=== PATIENT | female | born 1935 | race Caucasian/White ===

== ENCOUNTER 2017-03-25 19:36 | Outpatient (CLI) | payer MEDICARE, OTHER | END 2017-03-25 19:37 | disposition critical access hospital (66) | DX: R11.2 Nausea with vomiting, unspecified (principal) | CPT/HCPCS: A0425; A0427 ==

== ENCOUNTER 2017-03-25 19:57 | Inpatient (IN) | payer MEDICARE, OTHER ==
[2017-03-25] MEDS ORDERED: ONDANSETRON 4 MG/2 ML VIAL IVP STA (20:41)
[2017-03-25] MEDS ORDERED: SODIUM CHLORIDE 0.9% 1,000 ML IV ONE (20:41)
--- NOTE | 2017-03-25 20:44 | ED Physician Documentation ---
History of Present Illness - Stated complaint Stated Complaint: VERTIGO,NAUSEA - Chief complaint Chief Complaint: Neuro - History obtained from History obtained from: Patient - History of Present Illness Timing: Enter time (1800), Today - Additonal information Additional information: 81 y/o female with a history of thrombocytosis and TIA's has developed acute vertigo and vomiting this evening. She was a the eye doctor earlier today and had her eyes dilated. (she has been doing this for macular degeneration for 5 months without reactions). She has a history of vertigo and this is usually improved with dramamine and benadryl. 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 Review of Systems Constitutional: denies: Fever, Chills, Myalgias, Fatigue Eyes: reports: Decreased vision Ears: denies: Ear pain Nose: denies: Rhinorrhea / runny nose, Congestion Throat: denies: Sore throat Cardiac: denies: Chest pain / pressure, Palpitations Respiratory: denies: Dyspnea, Cough GI: reports: Nausea, Vomiting. denies: Abdominal Pain : denies: Dysuria, Frequency Skin: denies: Rash Musculoskeletal: denies: Neck pain, Back pain, Extremity pain Neurologic: denies: Generalized weakness, Focal weakness, Numbness, Difficulty speaking, Confused, Altered mental status, Headache, Head injury, LOC PD PAST MEDICAL HISTORY - Past Medical History Cardiovascular: Hypertension Respiratory: None Neuro: None Endocrine/Autoimmune: HyPOthyroidism GI: GERD : Kidney stones HEENT: Other Psych: Claustrophobia Musculoskeletal: Osteoarthritis Derm: None - Past Surgical History Past Surgical History: Yes General: Cholecystectomy, Appendectomy, 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 08/27/14 03/25/17 metFORMIN [Glucophage] 500 mg ORAL DAILY 10/16/16 03/25/17 Aspirin Chewable [St Dilan 81 mg PO DAILYWM tablet 10/17/16 03/25/17 Aspirin] Hydroxyurea [Hydrea] 500 mg PO DAILY 02/18/17 03/25/17 Simvastatin 20 mg PO DAILY 03/25/17 03/25/17 - Allergies Allergies/Adverse Reactions: Allergies Allergy/AdvReac Type Severity Reaction Status Date / Time No Known Drug Allergies Allergy Verified 03/25/17 20:07 - Social History Does the pt smoke?: No Smoking Status: Never smoker Does the pt drink ETOH?: No Does the pt have substance abuse?: No - Immunizations Immunizations are current?: Yes - POLST Patient has POLST: No PD ED PE NORMAL - Vitals Vital signs reviewed: Yes (hypertensive with wide pulse pressure. ) - General General: Well developed/nourished - HEENT HEENT: Atraumatic, EOMI, Ears normal, Other (dry mucous membranes the left pupil is larger than the right. There is horizontal nystagmus at rest. ) - Neck Neck: Supple, no meningeal sign, No bony TTP, No bruit - Cardiac Cardiac: RRR, No murmur - Respiratory Respiratory: No respiratory distress, Clear bilaterally - Abdomen Abdomen: Soft, Non tender - Derm Derm: Normal color, Warm and dry, No rash - Extremities Extremities: No deformity, No edema - Neuro Neuro: No motor deficit, No sensory deficit - Psych Psych: Other (concentrating hard not to vomit. ) Results - Vitals Vitals: Vital Signs - 24 hr 03/25/17 03/25/17 03/25/17 20:02 22:33 23:00 Temperature 36.2 C L Heart Rate 70 89 86 Respiratory 14 23 15 Rate Blood Pressure 157/63 H 155/85 H 132/82 H O2 Saturation 100 98 97 Oxygen O2 Source Room air - Labs Labs: Laboratory Tests 03/25/17 03/25/17 03/25/17 21:10 21:10 21:10 WBC 12.3 H RBC 4.22 Hgb 12.4 Hct 38.0 MCV 90.2 MCH 29.4 MCHC 32.6 RDW 17.7 H Plt Count 424 MPV 7.1 L Neut # 10.5 H Lymph # 1.0 L Bulloch # 0.7 Eos # 0.1 Baso # 0.0 Absolute Nucleated RBC 0.01 Nucleated RBCs 0.1 Sodium 138 Potassium 3.9 Chloride 101 Carbon Dioxide 27 Anion Gap 10.0 BUN 22 H Creatinine 0.8 Estimated GFR (MDRD) 69 L Glucose 193 H Calcium 9.2 Total Bilirubin 0.3 AST 20 ALT 18 Alkaline Phosphatase 59 Troponin I < 0.04 Total Protein 7.4 Albumin 4.5 Globulin 2.9 Albumin/Globulin Ratio 1.6 Lipase 32 Procedures - IVC sono (time) 2036 Bedside IVC sono: IVC measures (cm) (0.87), IVC collapsed c insp (cm) (complete) , Dehydration PD MEDICAL DECISION MAKING - ED course Complexity details: reviewed old records, reviewed results, re-evaluated patient , considered differential, d/w patient, d/w family ED course: 81 y/o female with thrombocytosis has acute vertigo with vomiting. There is concern for lateral medullary infarction with the thrombocytosis. Today her platelets are normal. She continues to have nausea, vomiting and vertigo despite the use of zofran. She is given phenergan and meclazine and continues be extremely vertiginous and nauseated. She is unable to sit up without vomiting. Her vomiting is intractable and admission is sought. Dr. Soares graciously agrees to care for the patient in the hospital. Departure - Departure Disposition: 66 [facility] DC/Xfer Clinical Impression: Vertigo Intractable vomiting with nausea Qualifiers: Vomiting type: unspecified Qualified Code(s): R11.2 - Nausea with vomiting, unspecified Condition: Stable
[2017-03-25] MEDS ORDERED: ONDANSETRON 4 MG/2 ML VIAL ONE (20:52)
[2017-03-25 21:22] LABS: BASOPHILS % (AUTO) 0.4 %; EOSINOPHILS # (AUTO) 0.1 10^3/uL (0.0-0.7); EOSINOPHILS % (AUTO) 0.5 %; HGB - HEMOGLOBIN 12.4 g/dL (12.0-16.0); LYMPHOCYTES % (AUTO) 8.5 %; MEAN CORPUSCULAR HEMOGLOBIN 29.4 pg (27.0-31.0); MEAN CORPUSCULAR HGB CONC 32.6 g/dL (32.0-36.0); MEAN CORPUSCULAR VOLUME 90.2 fL (81.0-99.0); MEAN PLATELET VOLUME 7.1 fL (7.9-10.8); MONOCYTES # (AUTO) 0.7 10^3/uL (0.0-1.0); MONOCYTES % (AUTO) 5.5 %; NEUTROPHILS # (AUTO) 10.5 10^3/uL (1.5-6.6); NEUTROPHILS % (AUTO) 85.1 %; NUCLEATED RED BLOOD CELLS AUTO 0.1 /100WBC; RED BLOOD COUNT 4.22 10^6/uL (4.20-5.40); RED CELL DISTRIBUTION WIDTH 17.7 % (12.0-15.0); UNCORRECTED WHITE BLOOD COUNT 12.3 x10^3/uL; WHITE BLOOD COUNT 12.3 x10^3/uL (4.8-10.8)
[2017-03-25 21:34] LABS: ALBUMIN/GLOBULIN RATIO 1.6 (1.0-2.2); BILIRUBIN,TOTAL 0.3 mg/dL (0.2-1.0); CALCIUM 9.2 mg/dL (8.5-10.3); CREATININE 0.8 mg/dL (0.4-1.0); POTASSIUM 3.9 mmol/L (3.5-5.0); TOTAL PROTEIN 7.4 g/dL (6.7-8.2)
[2017-03-25] MEDS ORDERED: PROMETHAZINE INJ 25 MG in SODIUM CHLORIDE 0.9% 50 ML IV STA (22:00)
[2017-03-25] MEDS ORDERED: MECLIZINE 12.5 MG TABLET PO STA (22:03)
[2017-03-25] MEDS ORDERED: PROMETHAZINE 25 MG/1 ML VIAL ONE (22:05)
--- NOTE | 2017-03-25 22:06 | CT Preliminary Report ---
Exam: CT Head W/O IMPRESSION: No CT evidence of acute intracranial abnormality, specifically no CT evidence of acute infarct, intra cranial hemorrhage, mass effect, midline shift, or hydrocephalus. [facility] SITE ID: [id number]
--- NOTE | 2017-03-25 22:09 | CT Report ---
EXAM: CT HEAD EXAM DATE: 03/25/2017 09:48 PM. CLINICAL HISTORY: Vertigo/vomiting. COMPARISON: CT head 10/16/2016 TECHNIQUE: Multiaxial CT images were obtained from the foramen magnum to the vertex. IV contrast: Non e. Reformats: Coronal. In accordance with CT protocol optimization, one or more of the following dose reduction techniques w ere utilized for this exam: automated exposure control, adjustment of mA and/or KV based on patient s ize, or use of iterative reconstructive technique. FINDINGS: Parenchyma: No intraparenchymal hemorrhage. No evidence of mass, midline shift, or CT findings of inf arction. Guardado-white differentiation is distinct. Extraaxial Spaces: Normal for age. No subdural or epidural collections identified. Ventricles: Normal in size and position. Sinuses: Imaged paranasal sinuses, orbits, and mastoids show no significant abnormality. Bones: No evidence of fracture or calvarial defect. Other: None. IMPRESSION: No CT evidence of acute intracranial abnormality, specifically no CT evidence of acute infarct, intra cranial hemorrhage, mass effect, midline shift, or hydrocephalus. [facility] Referring Provider Line: [phone] SITE ID: [id number]
[2017-03-25] MEDS ORDERED: MECLIZINE 12.5 MG TABLET PO ONE (22:11)
[2017-03-25] MEDS ORDERED: SODIUM CHLORIDE FLUSH 0.9% 10 ML SYRINGE IVP PRN (23:34)
[2017-03-25] MEDS ORDERED: ACETAMINOPHEN 325 MG TABLET PO PRN (23:34)
--- NOTE | 2017-03-25 23:58 | HISTORY & PHYSICAL EXAMINATION ---
Chief Complaint - Chief Complaint Chief Complaint: nnausea, vomiting, severe vertigo History of Present Illness - Admitted From Admitted From:: emergency room - History Obtained From Records Reviewed: EMR records History obtained from: patient - History of Present Illness HPI Comment/Other: this 81-year-old female presented to the emergency room today complaining of severe vertigo, with intractable nausea and vomiting..she recently started treatment for essential thrombocytosis.. She also had a dilated eye exam today. she says she was feeling fine up until about 6:30 this evening. She then noticed she felt off-norman when trying to walk to the bathroom.. Shortly after that she could feel her eyes jerking,, and became extremely nauseated. She has since continued to have nausea and vomiting. She presented to the emergency room, but is still unable to stand or sit upright,, without becoming significantly nauseated. She denies blurry or double vision, but the motion of her eyes jerking triggers the nausea. She otherwise denies recent fever , chills or headaches. She does have chronic tinnitus,, which seemed worse last night. She denies sore throat or cough, neck stiffness or swollen glands, chest pain or palpitations, shortness of breath or wheezing,, abdominal pain, diarrhea or constipation,, dysuria. She did note that her left foot was tingling a little bit on arrival to her room.. She otherwise has not noticed facial droop or focal weakness. She was here in October with TIA symptoms. MRA of the brain and neck, carotid Dopplers,, echocardiogram were all unrevealing. However, she was diagnosed with thrombocytosis at that time. She is now followed by Dr. Hedrick of hematology , and is being treated with hydroxyurea. She believes she is tolerating this medicine fine. 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 Negative erasmo 2 mutation Iron deficiency anemia TIA October of 2016, thought secondary to thrombocytosis Hypertension Hypothyroidism Diabetes type II GERD Medications: Aspirin 81 mg daily Hydroxyurea 500 mg daily Poly-iron 150 daily Levothyroxin 25 mcg daily Lisinopril 10 mg daily Atenolol 100 mg daily Amlodipine 10 mg daily Omeprazole 40 mg daily Metformin 500 mg daily Simvastatin 20 mg daily Vitamin C 500 mg daily Allergies: No known drug allergies Family history: sister had breast cancer. Mother had Alzheimer's disease. Father of an [place] at age 48. her 3 children are alive and well. 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 she is and lives with her . She denies tobacco or drug or alcohol use. 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 08/27/14 03/25/17 metFORMIN [Glucophage] 500 mg ORAL DAILY 10/16/16 03/25/17 Aspirin Chewable [St Dilan 81 mg PO DAILYWM tablet 10/17/16 03/25/17 Aspirin] Hydroxyurea [Hydrea] 500 mg PO DAILY 02/18/17 03/25/17 Simvastatin 20 mg PO DAILY 03/25/17 03/25/17 - Allergies Allergies/Adverse Reactions: Allergies Allergy/AdvReac Type Severity Reaction Status Date / Time No Known Drug Allergies Allergy Verified 03/25/17 20:07 Exam - Vital Signs Reviewed Vital Signs: Yes Vital Signs: Vital Signs x48h Temp Pulse Resp BP Pulse Ox 03/25/17 23:00 86 15 132/82 H 97 03/25/17 22:33 89 23 155/85 H 98 03/25/17 20:02 36.2 C L 70 14 157/63 H 100 on exam,, she is a well-developed well-nourished white female, in no acute distress. She does keep and emesis bag nearby. Head: Normocephalic, atraumatic. Eyes: PERRLA, EOMI, anicteric. She has significant nystagmus at rest, with fast component to the right.. On the EOM exam, this almost seems like a rotary nystagmus.. Conjunctiva appear normal. Ears: TMs and canals are clear. Pharynx: Is clear. She has full upper and lower plates. Neck: Is supple, without lymphadenopathy,, JVD, thyromegaly, bruits. Cardiac exam: Shows regular rate and rhythm with normal S1 and S2, without murmurs,, rubs, gallops. Lungs: Are clear to auscultation, without rales, rhonchi, wheezes. Abdomen: Is soft and nontender without obvious masses. There is no guarding or rebound. Bowel sounds are active. Extremities: Show no cyanosis, clubbing,, edema.. Posterior tibial and dorsalis pedis pulses are intact. Neurologic exam: The patient is alert and oriented,, calm and cooperative. Cranial nerves, other than the eye findings noted above,, are within normal limits. Motor exam, shows normal strength in all extremities. Cerebellar exam: There is no pronator drift. Dyjcwa-pe-hfatcu and finger-to- nose exams are within normal limits.. Deep tendon reflexes: Are 2+ and brisk at the biceps and patellae.. Toes are downgoing to plantar stimulation.. Skin exam: Does not show obvious rashes or other lesions. Conclusion/Plan - Lab Results Fish Bones: 03/25/17 21:10 03/25/17 21:10 Other Lab Results: a CBC differential: RDW is elevated at 17. Absolute neutrophil count is 10,500, elevated. LFTs are within normal limits. Troponin is normal at less than 0.04. Lipase is normal. head CT: No acute intracranial abnormality, no acute infarct. 02/18/2017: Iron studies show iron level of 55, with 17% saturation. October,: MRA of the brain and carotid Doppler studies from October of 2016 were essentially normal October 2016: Echocardiogram: Mild LVH, with LVEF of 65%. Grade 1 diastolic dysfunction. Mild to moderate tricuspid regurgitation.. Issues/Core Measures - Anticipated LOS Anticipated Stay Length: Less than 2 midnights - Issues Hospital Issues and Management Plan: #1. Neurologic. Patient presents with severe vertigo, and intractable nausea and vomiting. She will be admitted for IV fluids, antiemetics,, and other medications to control her symptoms. -TIA in October of 2016, was thought due to her essential thrombocytosis,, however platelet count is currently normal after treatment. -Continue aspirin. Consider MRA of the brain tomorrow morning. Consider reviewing the case with oncology to see if they would recommend additional stroke prevention. #2. hematologic. -Essential thrombocytosis. Continue Hydrea per oncology. -Leukocytosis. of uncertain etiology. Recheck in the morning. consider screening chest x-ray and urinalysis. #3. Endocrine. Type II diabetes. Metformin is on hold. Monitor Accu-Cheks and cover with Sliding scale insulin. #4. Hypertension. -Monitor; continue medications. #5. GI. GERD. Continue proton pump inhibitor. #6. CODE STATUS:full code. #7. DVT prophylaxis: Since she may end up staying in bed until vertigo resolves , add subcutaneous heparin. #8. Hypothyroidism. Continue levothyroxine. this visit took approximately 60 minutes,, to review her case with the ER Anand , review her old records,, interview and examine her, and write orders. - DVT/VTE - Prophylaxis VTE/DVT Device ordered at admit?: No VTE/DVT Prophylaxis med ordered at admit?: Yes - Stroke - Rehab Assessment Rehab services assessment to be ordered?: Yes
[2017-03-26 00:13] LABS: BILIRUBIN,URINE NEGATIVE (NEGATIVE); PH,URINE 7.5 PH (5.0-7.5)
[2017-03-26 00:15] LABS: UA CHARGE (STRIP ONLY) YES; UR CULTURE IF IND NOT INDICATED
[2017-03-26] MEDS ORDERED: MECLIZINE 12.5 MG TABLET PO PRN (00:18)
[2017-03-26] MEDS: LORazepam 2 MG/ML SYRINGE IVP PRN ×2 (01:28→10:16)
[2017-03-26] MEDS: SODIUM CHLORIDE FLUSH 0.9% 10 ML SYRINGE IVP SCH ×3 (01:29→21:23)
[2017-03-26 05:59] LABS: BASOPHILS % (AUTO) 0.2 %; HCT - HEMATOCRIT 33.4 % (37.0-47.0); HGB - HEMOGLOBIN 11.3 g/dL (12.0-16.0); LYMPHOCYTES # (AUTO) 0.7 10^3/uL (1.5-3.5); LYMPHOCYTES % (AUTO) 9.1 %; MEAN CORPUSCULAR HEMOGLOBIN 30.4 pg (27.0-31.0); MEAN CORPUSCULAR HGB CONC 33.8 g/dL (32.0-36.0); MEAN CORPUSCULAR VOLUME 89.9 fL (81.0-99.0); MEAN PLATELET VOLUME 7.4 fL (7.9-10.8); MONOCYTES # (AUTO) 0.4 10^3/uL (0.0-1.0); MONOCYTES % (AUTO) 4.6 %; NEUTROPHILS % (AUTO) 86.1 %; NUCLEATED RED BLOOD CELLS AUTO 0.1 /100WBC; RED BLOOD COUNT 3.72 10^6/uL (4.20-5.40); RED CELL DISTRIBUTION WIDTH 18.1 % (12.0-15.0); UNCORRECTED WHITE BLOOD COUNT 8.1 x10^3/uL; WHITE BLOOD COUNT 8.1 x10^3/uL (4.8-10.8)
[2017-03-26 06:12] LABS: ALBUMIN/GLOBULIN RATIO 1.6 (1.0-2.2); BILIRUBIN,TOTAL 0.5 mg/dL (0.2-1.0); CALCIUM 8.7 mg/dL (8.5-10.3); CREATININE 0.7 mg/dL (0.4-1.0); POTASSIUM 3.8 mmol/L (3.5-5.0); TOTAL PROTEIN 6.3 g/dL (6.7-8.2)
[2017-03-26] MEDS: LEVOTHYROXINE 25 MCG TABLET PO SCH (06:13)
[2017-03-26] MEDS: PANTOPRAZOLE 40 MG TABLET PO SCH (06:13)
[2017-03-26 06:47] LABS: HEMOGLOBIN A1C 0.5 g/dL
[2017-03-26] MEDS: INSULIN ASPART 300 UNIT/3 ML PEN SUBQ SCH ×4 (07:56→21:21)
[2017-03-26] MEDS: ONDANSETRON 4 MG/2 ML VIAL IVP PRN (08:21)
[2017-03-26] MEDS: amLODIPine 5 MG TABLET PO SCH (08:46)
[2017-03-26] MEDS: ATENOLOL 25 MG TABLET PO SCH (08:47)
[2017-03-26] MEDS: ASPIRIN CHEW 81 MG TABLET PO SCH (08:47)
[2017-03-26] MEDS: LISINOPRIL 5 MG TABLET PO SCH (08:48)
[2017-03-26] MEDS: HEPARIN 5,000 UNIT/ML VIAL SUBQ SCH ×2 (08:48→21:22)
[2017-03-26] MEDS: POLYETHYLENE GLYCOL 3350 17 GM PACKET PO SCH (08:57)
[2017-03-26] MEDS: HYDROXYUREA 500 MG CAPSULE PO SCH (08:57)
[2017-03-26] MEDS ORDERED: NON FORMULARY MED (Simvastatin [Simvastatin] 20 MG) PO SCH (09:00)
[2017-03-26 10:51] LABS: BILIRUBIN,URINE NEGATIVE (NEGATIVE); PH,URINE 7.5 PH (5.0-7.5)
[2017-03-26 11:09] LABS: UR CULTURE IF IND NOT INDICATED; WBC,URINE 0-3 /HPF (0-5)
[2017-03-26] MEDS ORDERED: GADOBUTROL 7.5 MMOL/7.5 ML VIAL IVP ONE ×2 (11:55)
--- NOTE | 2017-03-26 12:29 | MRI Preliminary Report ---
Exam: MRI Angio Brain W/O (MRA) IMPRESSION: Normal brain MRA. No stenoses or aneurysms. No significant change compared to MR angiogra m 10/17/2016 [facility] SITE ID: [id number]
--- NOTE | 2017-03-26 12:32 | MRI Preliminary Report ---
Exam: MRI Brain W/O IMPRESSION: 1. No acute infarct, intracranial hemorrhage, mass lesion or hydrocephalus. 2. Minimal ill-defined T2 hyperintensities are seen in the subcortical parietal white matter, right g reater than left, nonspecific, most commonly representing chronic microvascular angiopathy. [facility] SITE ID: [id number]
--- NOTE | 2017-03-26 12:32 | MRI Report ---
EXAM MRA BRAIN EXAM DATE: 03/26/2017 11:57 AM. CLINICAL HISTORY: Severe vertigo, history of transient ischemic attack, thrombocytosis. COMPARISON: MR angiogram 10/17/2016. TECHNIQUE: Multiplanar, multisequence MRA sequences of the brain were performed. Other: None. Post-pr ocessing: Multiplanar 3D MIP reconstructions. IV Contrast: None. FINDINGS: RIGHT Distal cervical, petrosal, cavernous and supraclinoid ICA appear patent. Visualized middle cerebral a nd anterior cerebral arteries appear patent. There is no evidence for aneurysm. The right posterior c ommunicating artery appear patent. LEFT Distal cervical, petrosal, cavernous and supraclinoid ICA appear patent. Visualized middle cerebral a nd anterior cerebral arteries appear patent. There is no evidence for aneurysm. Anterior communicatin g artery appear patent. Posterior communicating artery appear hypoplastic. Posterior circulation: The right vertebral artery is dominant and patent. The right PICA appear patent. The left vertebral a rtery nondominant but patent. Left PICA not well-visualized, similar to previous study. Basilar arter y appear patent. Posterior cerebral and superior cerebellar arteries appear patent. No evidence for a neurysm. IMPRESSION: Normal brain MRA. No stenoses or aneurysms. No significant change compared to MR angiogra m 10/17/2016 [facility] Referring Provider Line: [phone] SITE ID: [id number]
--- NOTE | 2017-03-26 12:35 | MRI Report ---
EXAM: MRI BRAIN WITHOUT CONTRAST EXAM DATE: 03/26/2017 10:47 AM. CLINICAL HISTORY: Vertigo and intractable vomiting. COMPARISON: CT head without contrast 03/25/2017, 10/16/2016. TECHNIQUE: Multiplanar, multisequence T1-weighted and fluid-sensitive MR sequences of the brain were performed. Sequences optimized for routine evaluation. Other: None. IV Contrast: None. FINDINGS: Diffusion weighted sequence shows no evidence for acute infarct. There is no mass, mass effect, midl ine shift or abnormal extraaxial fluid collection. Size and configuration of the ventricles are normal. Ill-defined T2 hyperintensities are seen in the subcortical and periventricular white matter, greater on the right parietal compared to the left. Brainstem and cerebellum appear normal. Major intracranial flow voids appear normal. Globes, orbits, optic nerve sheath complex, optic chiasm, pituitary, cavernous sinus and Meckel's cav e appear normal. Paranasal sinuses and mastoid air cells appear well aerated. Marrow signal and extracranial soft tissue appear normal. Craniocervical junction and visualized upper cervical cord appear unremarkable. IMPRESSION: 1. No acute infarct, intracranial hemorrhage, mass lesion or hydrocephalus. 2. Minimal ill-defined T2 hyperintensities are seen in the subcortical parietal white matter, right g reater than left, nonspecific, most commonly representing chronic microvascular angiopathy. [facility] Referring Provider Line: [phone] SITE ID: [id number]
--- NOTE | 2017-03-26 12:49 | MRI Preliminary Report ---
Exam: MRI Angio Neck W/WO (MRA) IMPRESSION: No evidence for acute abnormality or significant stenosis of the cervical vertebral or ca rotid arteries. Note that the most proximal aspect of the left vertebral artery is somewhat indistinc t likely from imaging artifact, this nondominant vessel arises from the top of the aortic arch. [facility] SITE ID: [id number]
[2017-03-26] MEDS: SODIUM CHLORIDE 0.9% 1,000 ML IV SCH ×2 (12:57→17:54)
--- NOTE | 2017-03-26 13:05 | MRI Report ---
EXAM: MR ANGIOGRAM NECK EXAM DATE: 03/26/2017 12:11 PM. CLINICAL HISTORY: Vertigo and intractable vomiting. COMPARISON: None. TECHNIQUE: Multiplanar, multisequence MRA sequences of the neck were performed. Other: None. Post-pro cessing: Multiplanar 3D MIP reconstructions. IV Contrast: Without and with 6 mL Gadavist. Evaluation of arterial stenosis is based on a NASCET method of measurement. FINDINGS: The top of the aortic arch and the origins of the great vessels are patent. No proximal subclavian ar minesh flow-limiting stenosis. The left vertebral artery arises from the top of the aortic arch. This vessel is patent. The contours of the proximal left cervical vertebral artery in the upper chest and lower neck are somewhat indist inct due to imaging artifact but findings of flow-limiting stenosis are not clearly demonstrated. Unremarkable appearance of the congenitally dominant right cervical vertebral artery. No acute abnorm ality or flow-limiting stenosis. Mildly tortuous cervical carotid arteries. No evidence for acute cervical carotid artery abnormality or focal flow limiting stenosis. No evidence for intracranial vertebrobasilar insufficiency. IMPRESSION: No evidence for acute abnormality or significant stenosis of the cervical vertebral or ca rotid arteries. Note that the most proximal aspect of the left vertebral artery is somewhat indistinc t likely from imaging artifact, this nondominant vessel arises from the top of the aortic arch. [facility] Referring Provider Line: [phone] SITE ID: [id number]
--- NOTE | 2017-03-26 13:15 | PROVIDER PROGRESS NOTE ---
Assessment/Plan - Problem List (1) Vertigo Assessment/Plan: Presented with acute onset vertigo, positive nystagmus, gait instability, nausea and vomiting. 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 and continues to have severe symptoms will try to give patient corticosteroids IV and see if she responds Plan: IV steroids Continue Meclizine PO but increase to 25 mg q 6 hours IVFs Antiemetics Patient unstable on her feet and with intractable vomiting not ready for discharge today Will switch to inpatient and continue treatment (2) Intractable vomiting with nausea Qualifiers: Vomiting type: unspecified Qualified Code(s): R11.2 - Nausea with vomiting , unspecified Assessment/Plan: Likely secondary to #1 vertigo could also be secondary to hydroxyurea but less likely as symptoms started in conjunction with vertigo Patient continue to have vomiting this morning not able to keep her food down Was able to keep meclizine pills down Plan IVFs IV antiemetics Monitor electrolytes (3) Muscle spasms of neck Assessment/Plan: Patient has had spasms of her neck for 1-2 days Appears to be simple muscle spasm Will give muscle relaxants prn, NSAIDs and tylenol (4) Essential thrombocytosis Assessment/Plan: Follows outpatient with hematology On hydroxyurea Patient plt count now in the normal range She does not appear to have had a stroke (5) Hypertension Assessment/Plan: BP slightly elevated On home meds for htn COntinue home meds Titrate meds as needed Monitor BP (6) Hypothyroidism Assessment/Plan: Continue home dose of levothyroxine Stable Check TSH (7) Diabetes Qualifiers: Diabetes mellitus type: type 2 Assessment/Plan: Patient on metformin at home HbA1C of 6.1 Place on DM diet and SS insulin - Current Meds Current Meds: Current Medications Generic Name Dose Route Start Last Admin Trade Name Freq PRN Reason Stop Dose Admin Amlodipine Besylate 10 mg 03/26/17 09:00 03/26/17 08:46 Norvasc PO 10 mg DAILY DANIEL Administration Aspirin 81 mg 03/26/17 08:00 03/26/17 08:47 St Dilan Aspirin PO 81 mg DAILYWM DANIEL Administration Atenolol 100 mg 03/26/17 09:00 03/26/17 08:47 Tenormin PO 100 mg DAILY DANIEL Administration Heparin Sodium (Porcine) 5,000 unit 03/26/17 09:00 03/26/17 08:48 SUBQ 5,000 unit BID DANIEL Administration Hydroxyurea 500 mg 03/26/17 09:00 03/26/17 08:57 Hydrea PO 500 mg DAILY DANIEL Administration Sodium Chloride 1,000 mls @ 125 mls/hr 03/26/17 13:00 03/26/17 12:57 Normal Saline 0.9% IV 125 mls/hr .Q8H DANIEL Administration Insulin Aspart 1 - 5 unit 03/26/17 08:00 03/26/17 12:58 Novolog SUBQ 1 unit 0800,1200,1700,2100 DANIEL Administration Protocol Levothyroxine Sodium 25 mcg 03/26/17 07:00 03/26/17 06:13 Synthroid PO 25 mcg QDAC DANIEL Administration Lisinopril 10 mg 03/26/17 09:00 03/26/17 08:48 Zestril PO 10 mg DAILY DANIEL Administration Lorazepam 0.5 mg 03/25/17 23:47 03/26/17 10:16 Ativan Inj IVP 0.5 mg Q2H PRN Administration Nausea / Vomiting Ondansetron HCl 4 mg 03/25/17 23:34 03/26/17 08:21 Zofran Inj IVP 4 mg Q4H PRN Administration Nausea / Vomiting Pantoprazole Sodium 40 mg 03/26/17 07:00 03/26/17 06:13 Protonix PO 40 mg QDAC DANIEL Administration Polyethylene Glycol 17 gm 03/26/17 09:00 03/26/17 08:57 Miralax PO Not Given DAILY DANIEL Sodium Chloride 10 ml 03/26/17 06:00 03/26/17 01:29 Normal Saline Flush 0.9% IVP 20 ml Q8HR DANIEL Administration - Lab Result Lab results reviewed: Yes Fish Bone Diagrams: 03/26/17 05:10 03/26/17 05:10 - EKG Results EKG Interpreted Independently: Yes - Diagnostic Imaging Results Diagnostic Imaging Results: positive: Final report reviewed - Additional Planning Condition/Complexity: Guarded My Orders: My Active Orders 03/26/17 13:00 Admit \ Transfer \ Status [RC] ONCE Sodium Chloride 0.9% [Normal Saline 0.9%] 1,000 ml IV 125 mls/hr 03/26/17 13:02 Meclizine [Antivert] 25 mg PO Q6HR PRN 03/26/17 13:30 methylPREDNISolone SUCCINATE [SOLU-Medrol (40MG VIAL)] 40 mg IVP DAILY Consult/Specialty: PT Time Spent: 31-60 minutes Subjective - Subjective Patient Reports: Dizzines (Patient with persistent vertigo even at rest. Unstable gait.), Nausea (Vomiting this am with persistent nausea.) Nursing Reports: No Complaints Objective Vital Signs: Vital Signs - 24 hr 03/26/17 03/26/17 03/26/17 01:00 05:15 08:10 Temperature 36.2 C L 36.4 C L 36.8 C Heart Rate [ 86 81 83 Brachial] Respiratory 18 16 18 Rate Blood Pressure 153/65 H 132/72 H 149/70 H [Left Brachial artery] O2 Saturation 97 96 97 Oxygen O2 Source Room air I&O (Last 24 Hrs): Intake and Output Totals x24h 03/24/17 03/25/17 03/26/17 23:59 23:59 23:59 Intake Total 50 Output Total 775 Balance -725 General: Alert, Oriented x3, Cooperative, Other (Nystagmus rotational) HEENT: Atraumatic, PERRLA, EOMI, Other (dry mucus membranes, +nystagmus) Neck: Supple, No JVD, No thyromegaly, +2 carotid pulse wo bruit, No LAD Lymphatic: no adenopathy Neuro: Alert, Non Focal, CN 2-12 Grossly Intact, Oriented Times 3 Cardiovascular: Regular rate, Normal S1, Normal S2, No murmurs Respiratory: Chest non-tender, No respiratory distress, Breath sounds nml Abdomen: Normal bowel sounds, Soft, No tenderness, No hepatospenomegaly Extremities: No clubbing, No cyanosis, No edema, Normal pulses, No tenderness/ swelling Skin: No rashes, No breakdown, No significant lesion - Results Results: Laboratory Results WBC 8.1 x10^3/uL (4.8-10.8) 03/26/17 05:10 RBC 3.72 10^6/uL (4.20-5.40) L 03/26/17 05:10 Hgb 11.3 g/dL (12.0-16.0) L 03/26/17 05:10 Hct 33.4 % (37.0-47.0) L 03/26/17 05:10 MCV 89.9 fL (81.0-99.0) 03/26/17 05:10 MCH 30.4 pg (27.0-31.0) 03/26/17 05:10 MCHC 33.8 g/dL (32.0-36.0) 03/26/17 05:10 RDW 18.1 % (12.0-15.0) H 03/26/17 05:10 Plt Count 350 10^3/uL (130-450) 03/26/17 05:10 MPV 7.4 fL (7.9-10.8) L 03/26/17 05:10 Neut # 7.0 10^3/uL (1.5-6.6) H 03/26/17 05:10 Lymph # 0.7 10^3/uL (1.5-3.5) L 03/26/17 05:10 [place] # 0.4 10^3/uL (0.0-1.0) 03/26/17 05:10 Eos # 0.0 10^3/uL (0.0-0.7) 03/26/17 05:10 Baso # 0.0 10^3/uL (0.0-0.1) 03/26/17 05:10 Absolute Nucleated RBC 0.01 x10^3/uL 03/26/17 05:10 Nucleated RBCs 0.1 /100WBC 03/26/17 05:10 Sodium 139 mmol/L (135-145) 03/26/17 05:10 Potassium 3.8 mmol/L (3.5-5.0) 03/26/17 05:10 Chloride 102 mmol/L (101-111) 03/26/17 05:10 Carbon Dioxide 28 mmol/L (21-32) 03/26/17 05:10 Anion Gap 9.0 (6-13) 03/26/17 05:10 BUN 20 mg/dL (6-20) 03/26/17 05:10 Creatinine 0.7 mg/dL (0.4-1.0) 03/26/17 05:10 Estimated GFR (MDRD) 81 (>89) L 03/26/17 05:10 Glucose 134 mg/dL (70-100) H 03/26/17 05:10 Glycated Hemoglobin 6.1 % (4.6-6.2) 03/25/17 05:10 Estim Average Glucose 128 (70-100) H 03/25/17 05:10 Calcium 8.7 mg/dL (8.5-10.3) 03/26/17 05:10 Total Bilirubin 0.5 mg/dL (0.2-1.0) 03/26/17 05:10 AST 18 IU/L (10-42) 03/26/17 05:10 ALT 16 IU/L (10-60) 03/26/17 05:10 Alkaline Phosphatase 53 IU/L (42-121) 03/26/17 05:10 Troponin I < 0.04 ng/mL (<0.49) 03/25/17 21:10 Total Protein 6.3 g/dL (6.7-8.2) L 03/26/17 05:10 Albumin 3.9 g/dL (3.2-5.5) 03/26/17 05:10 Globulin 2.4 g/dL (2.1-4.2) 03/26/17 05:10 Albumin/Globulin Ratio 1.6 (1.0-2.2) 03/26/17 05:10 Lipase 32 U/L (22-51) 03/25/17 21:10 Urine Color YELLOW 03/26/17 10:30 Urine Clarity CLEAR (CLEAR) 03/26/17 10:30 Urine pH 7.5 PH (5.0-7.5) 03/26/17 10:30 Ur Specific [place] 1.015 (1.002-1.030) 03/26/17 10:30 Urine Protein NEGATIVE mg/dL (NEGATIVE) 03/26/17 10:30 Urine Glucose (UA) NEGATIVE mg/dL (NEGATIVE) 03/26/17 10:30 Urine Ketones TRACE mg/dL (NEGATIVE) 03/26/17 10:30 Urine Occult Blood NEGATIVE (NEGATIVE) 03/26/17 10:30 Urine Nitrite NEGATIVE (NEGATIVE) 03/26/17 10:30 Urine Bilirubin NEGATIVE (NEGATIVE) 03/26/17 10:30 Urine Urobilinogen 0.2 (NORMAL) E.U./dL (NORMAL) 03/26/17 10:30 Ur Leukocyte Esterase NEGATIVE (NEGATIVE) 03/26/17 10:30 Urine RBC 0-5 /HPF (0-5) 03/26/17 10:30 Urine WBC 0-3 /HPF (0-5) 03/26/17 10:30 Ur Squamous Epith Cells NONE SEEN (<= Few) 03/26/17 10:30 Urine Bacteria Rare /HPF (None Seen) 03/26/17 10:30 Ur Microscopic Review NOT INDICATED 03/26/17 00:05 Urine Culture Comments NOT INDICATED 03/26/17 10:30 - Procedures Procedures: Procedures ESOPHAGOGASTRODUODENOSCOPY [EGD] W/CLOSED BIOPSY (03/19/14)
[2017-03-26] MEDS ORDERED: diazePAM 5 MG TABLET PO PRN (13:41)
[2017-03-26] MEDS: methylPREDNISolone SUCCINATE 40 MG/ML VIAL IVP SCH (13:54)
[2017-03-26] MEDS: MECLIZINE 12.5 MG TABLET PO PRN (17:04)
[2017-03-26] MEDS: ATORVASTATIN 10 MG TABLET PO SCH (21:21)
[2017-03-27] MEDS: SODIUM CHLORIDE 0.9% 1,000 ML IV SCH ×3 (01:04→16:30)
[2017-03-27] MEDS: PANTOPRAZOLE 40 MG TABLET PO SCH (05:13)
[2017-03-27] MEDS: LEVOTHYROXINE 25 MCG TABLET PO SCH (05:15)
[2017-03-27] MEDS: MECLIZINE 12.5 MG TABLET PO PRN (05:16)
[2017-03-27] MEDS: SODIUM CHLORIDE FLUSH 0.9% 10 ML SYRINGE IVP SCH ×3 (05:18→20:56)
[2017-03-27 05:54] LABS: EOSINOPHILS % (AUTO) 0.1 %; HGB - HEMOGLOBIN 12.2 g/dL (12.0-16.0); LYMPHOCYTES # (AUTO) 1.1 10^3/uL (1.5-3.5); LYMPHOCYTES % (AUTO) 13.9 %; MEAN CORPUSCULAR HEMOGLOBIN 30.6 pg (27.0-31.0); MEAN CORPUSCULAR HGB CONC 33.8 g/dL (32.0-36.0); MEAN CORPUSCULAR VOLUME 90.6 fL (81.0-99.0); MEAN PLATELET VOLUME 7.3 fL (7.9-10.8); MONOCYTES # (AUTO) 0.5 10^3/uL (0.0-1.0); MONOCYTES % (AUTO) 6.3 %; NEUTROPHILS # (AUTO) 6.1 10^3/uL (1.5-6.6); NEUTROPHILS % (AUTO) 79.7 %; NUCLEATED RED BLOOD CELLS AUTO 0.1 /100WBC; RED BLOOD COUNT 3.98 10^6/uL (4.20-5.40); RED CELL DISTRIBUTION WIDTH 18.8 % (12.0-15.0); UNCORRECTED WHITE BLOOD COUNT 7.7 x10^3/uL; WHITE BLOOD COUNT 7.7 x10^3/uL (4.8-10.8)
[2017-03-27 06:05] LABS: ALBUMIN/GLOBULIN RATIO 1.5 (1.0-2.2); BILIRUBIN,TOTAL 0.5 mg/dL (0.2-1.0); CALCIUM 8.9 mg/dL (8.5-10.3); CREATININE 0.7 mg/dL (0.4-1.0); POTASSIUM 3.6 mmol/L (3.5-5.0); TOTAL PROTEIN 6.7 g/dL (6.7-8.2)
[2017-03-27] MEDS: methylPREDNISolone SUCCINATE 40 MG/ML VIAL IVP SCH (08:56)
[2017-03-27] MEDS: HEPARIN 5,000 UNIT/ML VIAL SUBQ SCH ×2 (08:56→20:55)
[2017-03-27] MEDS: amLODIPine 5 MG TABLET PO SCH (08:57)
[2017-03-27] MEDS: ATENOLOL 25 MG TABLET PO SCH (08:57)
[2017-03-27] MEDS: ASPIRIN CHEW 81 MG TABLET PO SCH (08:57)
[2017-03-27] MEDS: LISINOPRIL 5 MG TABLET PO SCH (08:57)
[2017-03-27] MEDS: HYDROXYUREA 500 MG CAPSULE PO SCH (08:57)
[2017-03-27] MEDS: POLYETHYLENE GLYCOL 3350 17 GM PACKET PO SCH (08:58)
[2017-03-27] MEDS: INSULIN ASPART 300 UNIT/3 ML PEN SUBQ SCH ×4 (08:58→20:55)
[2017-03-27] MEDS: ONDANSETRON 4 MG/2 ML VIAL IVP PRN (16:48)
--- NOTE | 2017-03-27 17:34 | PROVIDER PROGRESS NOTE ---
Assessment/Plan - Problem List (1) Vertigo Assessment/Plan: Presented with acute onset vertigo, positive nystagmus, gait instability, nausea and vomiting. Does not appear to have BPPV as she has had it before and this is different and not just with movement No preceding viral inflammatory disorder No ear pain or rhinitis, no head trauma, patient has no headache or evidence of seizure activity Patient is on hydroxyurea which can cause nausea and vomiting but not vertigo MRI and MRA were negative Patient most likely has a combination of vestibular neuritis and BPPV Plan: IV steroids Continue Meclizine PO 25 mg q 6 hours IVFs Antiemetics Patient improving but still not able to walk steadily but able to stand today with PT She is not safe to discharge home as she is still having severe vertigo with trying to ambulate and move therefore will hold one more day and expect she will continue to improve (2) Intractable vomiting with nausea Qualifiers: Vomiting type: unspecified Qualified Code(s): R11.2 - Nausea with vomiting , unspecified Assessment/Plan: Likely secondary to #1 vertigo could also be secondary to hydroxyurea but less likely as symptoms started in conjunction with vertigo Improving Plan IVFs IV antiemetics Monitor electrolytes Resolving (3) Muscle spasms of neck Assessment/Plan: Patient has had spasms of her neck for 1-2 days Appears to be simple muscle spasm Continue muscle relaxants prn, NSAIDs and tylenol Stable (4) Essential thrombocytosis Assessment/Plan: Follows outpatient with hematology On hydroxyurea Patient plt count now in the normal range She does not appear to have had a stroke (5) Hypertension Assessment/Plan: BP slightly elevated COntinue home meds Titrate meds as needed Monitor BP (6) Hypothyroidism Assessment/Plan: Continue home dose of levothyroxine Stable TSh normal (7) Diabetes Qualifiers: Diabetes mellitus type: type 2 Assessment/Plan: Patient on metformin at home HbA1C of 6.1 On DM diet and SS insulin BS stable - Current Meds Current Meds: Current Medications Generic Name Dose Route Start Last Admin Trade Name Freq PRN Reason Stop Dose Admin Acetaminophen 650 mg 03/25/17 23:34 03/27/17 05:13 Tylenol PO 650 mg Q4HR PRN Administration Pain 1 to 4 Amlodipine Besylate 10 mg 03/26/17 09:00 03/27/17 08:57 Norvasc PO 10 mg DAILY DANIEL Administration Aspirin 81 mg 03/26/17 08:00 03/27/17 08:57 St Dilan Aspirin PO 81 mg DAILYWM DANIEL Administration Atenolol 100 mg 03/26/17 09:00 03/27/17 08:57 Tenormin PO 100 mg DAILY DANIEL Administration Atorvastatin Calcium 10 mg 03/26/17 21:00 03/26/17 21:21 Lipitor PO 10 mg QPM DANIEL Administration Heparin Sodium (Porcine) 5,000 unit 03/26/17 09:00 03/27/17 08:56 SUBQ 5,000 unit BID DANIEL Administration Hydroxyurea 500 mg 03/26/17 09:00 03/27/17 08:57 Hydrea PO 500 mg DAILY DANIEL Administration Sodium Chloride 1,000 mls @ 125 mls/hr 03/26/17 13:00 03/27/17 16:30 Normal Saline 0.9% IV 125 mls/hr .Q8H DANIEL Administration Insulin Aspart 1 - 5 unit 03/26/17 08:00 03/27/17 16:48 Novolog SUBQ 1 unit 0800,1200,1700,2100 DANIEL Administration Protocol Levothyroxine Sodium 25 mcg 03/26/17 07:00 03/27/17 05:15 Synthroid PO 25 mcg QDAC DANIEL Administration Lisinopril 10 mg 03/26/17 09:00 03/27/17 08:57 Zestril PO 10 mg DAILY DANIEL Administration Lorazepam 0.5 mg 03/25/17 23:47 03/26/17 10:16 Ativan Inj IVP 0.5 mg Q2H PRN Administration Nausea / Vomiting Meclizine HCl 25 mg 03/26/17 13:02 03/27/17 05:16 Antivert PO 25 mg Q6HR PRN Administration Dizziness Methylprednisolone 40 mg 03/26/17 14:00 03/27/17 08:56 Solu-Medrol (40mg Vial) IVP 40 mg DAILY DANIEL Administration Ondansetron HCl 4 mg 03/25/17 23:34 03/27/17 16:48 Zofran Inj IVP 4 mg Q4H PRN Administration Nausea / Vomiting Pantoprazole Sodium 40 mg 03/26/17 07:00 03/27/17 05:13 Protonix PO 40 mg QDAC DANIEL Administration Polyethylene Glycol 17 gm 03/26/17 09:00 03/27/17 08:58 Miralax PO Not Given DAILY DANIEL Sodium Chloride 10 ml 03/26/17 06:00 03/27/17 15:01 Normal Saline Flush 0.9% IVP Not Given Q8HR DANIEL - Lab Result Fish Bone Diagrams: 03/27/17 05:20 03/27/17 05:20 - EKG Results EKG Interpreted Independently: Yes - Diagnostic Imaging Results Diagnostic Imaging Results: positive: Final report reviewed - Additional Planning Condition/Complexity: Improved Consult/Specialty: PT Plan Discussed with:: Patient, Spouse Time Spent: 31-60 minutes Subjective - Subjective Patient Reports: Other (Patient still having vertigo. This am just with sitting up for breakfast she had severe vertigo. She has not vomited since yesterday evening and able to keep down her food and meds this am.) Nursing Reports: No Complaints Objective Vital Signs: Vital Signs - 24 hr 03/26/17 03/27/17 03/27/17 20:51 00:36 05:00 Temperature 36.7 C 36.7 C 36.8 C Heart Rate [ 75 74 84 Brachial] Heart Rate [ Sitting] Heart Rate [ Supine] Respiratory 16 16 16 Rate Blood Pressure [Activity] Blood Pressure 136/77 H 109/63 154/83 H [Right Brachial artery] Blood Pressure [Sitting] Blood Pressure [Supine] O2 Saturation 97 97 95 03/27/17 03/27/17 03/27/17 08:32 10:20 12:09 Temperature 36.6 C 36.6 C Heart Rate [ 73 72 Brachial] Heart Rate [ 74 Sitting] Heart Rate [ 71 Supine] Respiratory 16 20 Rate Blood Pressure 159/74 H [Activity] Blood Pressure 163/77 H 146/72 H [Right Brachial artery] Blood Pressure 166/76 H [Sitting] Blood Pressure 150/73 H [Supine] O2 Saturation 93 95 03/27/17 17:00 Temperature 36.7 C Heart Rate [ 73 Brachial] Heart Rate [ Sitting] Heart Rate [ Supine] Respiratory 16 Rate Blood Pressure [Activity] Blood Pressure 148/75 H [Right Brachial artery] Blood Pressure [Sitting] Blood Pressure [Supine] O2 Saturation 96 Oxygen O2 Source Room air I&O (Last 24 Hrs): Intake and Output Totals x24h 03/25/17 03/26/17 03/27/17 23:59 23:59 23:59 Intake Total 1832 1730 Output Total 1700 1200 Balance 132 530 General: Alert, Oriented x3, Cooperative, Mild distress (feels very dizzy, nystagmus present) HEENT: Atraumatic, PERRLA, EOMI, Other (Nystagmus) Neck: Supple, No JVD, No thyromegaly, +2 carotid pulse wo bruit, No LAD Lymphatic: no adenopathy Neuro: Alert, Non Focal, CN 2-12 Grossly Intact, Oriented Times 3 Cardiovascular: Regular rate, Normal S1, Normal S2, No murmurs Respiratory: Chest non-tender, No respiratory distress, Breath sounds nml Abdomen: Normal bowel sounds, Soft, No tenderness, No hepatospenomegaly Extremities: No clubbing, No cyanosis, No edema, Normal pulses Skin: No rashes, No breakdown, No significant lesion - Results Results: Laboratory Results WBC 7.7 x10^3/uL (4.8-10.8) 03/27/17 05:20 RBC 3.98 10^6/uL (4.20-5.40) L 03/27/17 05:20 Hgb 12.2 g/dL (12.0-16.0) 03/27/17 05:20 Hct 36.0 % (37.0-47.0) L 03/27/17 05:20 MCV 90.6 fL (81.0-99.0) 03/27/17 05:20 MCH 30.6 pg (27.0-31.0) 03/27/17 05:20 MCHC 33.8 g/dL (32.0-36.0) 03/27/17 05:20 RDW 18.8 % (12.0-15.0) H 03/27/17 05:20 Plt Count 415 10^3/uL (130-450) 03/27/17 05:20 MPV 7.3 fL (7.9-10.8) L 03/27/17 05:20 Neut # 6.1 10^3/uL (1.5-6.6) 03/27/17 05:20 Lymph # 1.1 10^3/uL (1.5-3.5) L 03/27/17 05:20 [place] # 0.5 10^3/uL (0.0-1.0) 03/27/17 05:20 Eos # 0.0 10^3/uL (0.0-0.7) 03/27/17 05:20 Baso # 0.0 10^3/uL (0.0-0.1) 03/27/17 05:20 Absolute Nucleated RBC 0.00 x10^3/uL 03/27/17 05:20 Nucleated RBCs 0.1 /100WBC 03/27/17 05:20 Sodium 142 mmol/L (135-145) 03/27/17 05:20 Potassium 3.6 mmol/L (3.5-5.0) 03/27/17 05:20 Chloride 109 mmol/L (101-111) 03/27/17 05:20 Carbon Dioxide 25 mmol/L (21-32) 03/27/17 05:20 Anion Gap 8.0 (6-13) 03/27/17 05:20 BUN 17 mg/dL (6-20) 03/27/17 05:20 Creatinine 0.7 mg/dL (0.4-1.0) 03/27/17 05:20 Estimated GFR (MDRD) 81 (>89) L 03/27/17 05:20 Glucose 123 mg/dL (70-100) H 03/27/17 05:20 Glycated Hemoglobin 6.1 % (4.6-6.2) 03/25/17 05:10 Estim Average Glucose 128 (70-100) H 03/25/17 05:10 Calcium 8.9 mg/dL (8.5-10.3) 03/27/17 05:20 Total Bilirubin 0.5 mg/dL (0.2-1.0) 03/27/17 05:20 AST 18 IU/L (10-42) 03/27/17 05:20 ALT 18 IU/L (10-60) 03/27/17 05:20 Alkaline Phosphatase 57 IU/L (42-121) 03/27/17 05:20 Troponin I < 0.04 ng/mL (<0.49) 03/25/17 21:10 Total Protein 6.7 g/dL (6.7-8.2) 03/27/17 05:20 Albumin 4.0 g/dL (3.2-5.5) 03/27/17 05:20 Globulin 2.7 g/dL (2.1-4.2) 03/27/17 05:20 Albumin/Globulin Ratio 1.5 (1.0-2.2) 03/27/17 05:20 Lipase 32 U/L (22-51) 03/25/17 21:10 TSH 1.46 uIU/mL (0.34-5.60) 03/27/17 05:20 Urine Color YELLOW 03/26/17 10:30 Urine Clarity CLEAR (CLEAR) 03/26/17 10:30 Urine pH 7.5 PH (5.0-7.5) 03/26/17 10:30 Ur Specific [place] 1.015 (1.002-1.030) 03/26/17 10:30 Urine Protein NEGATIVE mg/dL (NEGATIVE) 03/26/17 10:30 Urine Glucose (UA) NEGATIVE mg/dL (NEGATIVE) 03/26/17 10:30 Urine Ketones TRACE mg/dL (NEGATIVE) 03/26/17 10:30 Urine Occult Blood NEGATIVE (NEGATIVE) 03/26/17 10:30 Urine Nitrite NEGATIVE (NEGATIVE) 03/26/17 10:30 Urine Bilirubin NEGATIVE (NEGATIVE) 03/26/17 10:30 Urine Urobilinogen 0.2 (NORMAL) E.U./dL (NORMAL) 03/26/17 10:30 Ur Leukocyte Esterase NEGATIVE (NEGATIVE) 03/26/17 10:30 Urine RBC 0-5 /HPF (0-5) 03/26/17 10:30 Urine WBC 0-3 /HPF (0-5) 03/26/17 10:30 Ur Squamous Epith Cells NONE SEEN (<= Few) 03/26/17 10:30 Urine Bacteria Rare /HPF (None Seen) 03/26/17 10:30 Ur Microscopic Review NOT INDICATED 03/26/17 00:05 Urine Culture Comments NOT INDICATED 03/26/17 10:30 - Procedures Procedures: Procedures ESOPHAGOGASTRODUODENOSCOPY [EGD] W/CLOSED BIOPSY (03/19/14)
[2017-03-27] MEDS: ATORVASTATIN 10 MG TABLET PO SCH (20:55)
[2017-03-28] MEDS: SODIUM CHLORIDE 0.9% 1,000 ML IV SCH ×2 (00:07→08:00)
[2017-03-28] MEDS: SODIUM CHLORIDE FLUSH 0.9% 10 ML SYRINGE IVP SCH (06:00)
[2017-03-28] MEDS: LEVOTHYROXINE 25 MCG TABLET PO SCH (06:50)
[2017-03-28] MEDS: PANTOPRAZOLE 40 MG TABLET PO SCH (06:50)
[2017-03-28] MEDS: MECLIZINE 12.5 MG TABLET PO PRN (09:08)
[2017-03-28] MEDS: ONDANSETRON 4 MG/2 ML VIAL IVP PRN (09:08)
[2017-03-28] MEDS: ATENOLOL 25 MG TABLET PO SCH (09:11)
[2017-03-28] MEDS: POLYETHYLENE GLYCOL 3350 17 GM PACKET PO SCH (09:11)
[2017-03-28] MEDS: amLODIPine 5 MG TABLET PO SCH (09:11)
[2017-03-28] MEDS: LISINOPRIL 5 MG TABLET PO SCH (09:11)
[2017-03-28] MEDS: HYDROXYUREA 500 MG CAPSULE PO SCH (09:12)
[2017-03-28] MEDS: methylPREDNISolone SUCCINATE 40 MG/ML VIAL IVP SCH (09:12)
[2017-03-28] MEDS: ASPIRIN CHEW 81 MG TABLET PO SCH (09:12)
[2017-03-28] MEDS: HEPARIN 5,000 UNIT/ML VIAL SUBQ SCH (09:16)
[2017-03-28] MEDS: INSULIN ASPART 300 UNIT/3 ML PEN SUBQ SCH ×2 (11:09)
--- NOTE | 2017-03-28 11:39 | Discharge Plan ---
Discharge Plan Disposition: 01 Home, Self Care Condition: Fair Prescriptions: Meclizine [Antivert] 25 mg PO Q6HR PRN #45 tablet PRN Reason: Dizziness Prednisone 10 mg PO DAILY #5 tablet Ondansetron [Zofran Odt] 8 mg PO Q8H PRN #30 tab.rapdis PRN Reason: Nausea / Vomiting Diet: Diabetic Activity Restrictions: Activity as Tolerated Shower Restrictions: No Driving Restrictions: No Assistance Devices: Walker Weight Bearing: Full Weight Additional Instructions or Follow Up instructions: You presented to the hospital with vertigo and nausea. You look to have a combination of positional vertigo and likely had acute vestibular neuritis. You were given supportive care and treated with meclizine and a steroid which seems to have improved your symptoms. You are now doing well enough that you can go home You will need a walker till you are more steady on your feet. Please follow up with your PCP in the next 3-5 days. You may need a referral to ENT for your vertigo if it does not improve. Also I am referring you for outpatient PT to see a specialist in vertigo. Follow-Up Care: Outpatient Rehab - PT (For BPPV) No Smoking: If you smoke, Please STOP! Call for help.
[2017-03-28 12:07] VITALS: BP 142/70
--- NOTE | 2017-03-28 16:07 | DISCHARGE SUMMARY ---
DATE OF ADMISSION: 03/26/2017 DATE OF DISCHARGE: 03/28/2017 PRIMARY CARE PROVIDER: Flores Mansfield PA-C. DISCHARGING PHYSICIAN: Kennedy Mckenna MD. DISCHARGE DIAGNOSES: 1. Vestibular neuritis. 2. Benign paroxysmal positional vertigo. 3. Intractable nausea, vomiting. 4. Muscle spasm. 5. Hypertension. 6. Hypothyroidism. 7. Type 2 diabetes. 8. Essential thrombocytosis. DISCHARGE MEDICATIONS: 1. Amlodipine 10 mg p.o. daily. 2. Synthroid 25 mcg p.o. daily. 3. Atenolol 100 mg p.o. daily. 4. Aspirin 81 mg p.o. daily. 5. Metformin 500 mg p.o. daily. 6. Simvastatin 20 mg p.o. q.p.m.. 7. Omeprazole 40 mg p.o. daily. 8. Lisinopril 10 mg p.o. daily. 9. Hydroxyurea 500 mg p.o. daily. 10. Prednisone 10 mg p.o. daily x5 days. 11. Zofran ODT 8 mg p.o. q. 8 hours p.r.n. for nausea. 12. Antivert 25 mg p.o. q.6h. p.r.n. for vertigo. HOSPITAL COURSE: The patient is a very pleasant 81-year-old female with a past medical history significant for essential thrombocytosis, hypothyroidism, hypertension and type 2 diabetes who presented to the emergency department with a chief complaint of severe vertigo with intractable nausea, vomiting starting earlier in the day on the day of presentation. The patient had an eye exam and underwent eye dilation earlier in the day. She was feeling well up until that evening when she states that all of a sudden she noticed she was off balance when trying to walk to the bathroom. She states that she could feel her eyes jerking back and forth and felt extremely nauseated. She states that she felt as though the room was spinning around her and she had to sit down. She states that she continued to feel nauseated and vomited for the next several hours. She states that she could not even open her eyes because she could just see the room spinning around her and finally decided to come in to the emergency department. On arrival to the emergency department, the patient did note that she had some left foot tingling, but otherwise had no focal neurologic deficits. The patient had been seen in the hospital in October, at that time with TIA symptoms and underwent MRA of the brain and neck, along with carotid Dopplers and had echocardiogram which was all negative. The patient, however, at that time was diagnosed with essential thrombocytosis and followed up with Dr. Hedrick of Hematology and was treated with hydroxyurea, which she has been tolerating well and it seemed to have improved her thrombocytosis. The patient was initially placed in observation for rule out stroke as this was concerning for possible central vertigo and possible cerebellar infarct or posterior stroke. The patient again underwent a CT of her head which was negative and also underwent MRI of the brain, along with MRA of head and neck, all of which were negative for acute stroke. The patient, however, continued to have severe symptoms. Her vertigo was so severe that she could not even sit up in the bed and was too unsteady to be able to stand up or walk. She continued to have intractable nausea, vomiting. Given that the MRI was negative and this was not typical of her previous episodes of benign paroxysmal positional vertigo, we were concerned for possible vestibular neuritis, although she did not have any upper respiratory symptoms and the acuity of the presentation and the severity of symptoms were suggestive of vestibular neuritis and therefore the patient was started on steroids. The patient seemed to improve slowly over the next 2 days, she was changed to inpatient status and eventually was able to get up out of bed and with the assistance of a walker, was able to get up from the bed to the bathroom without vomiting and without having symptoms of vertigo. She was still periodically having vertigo, but the symptoms were well enough controlled that we were able to discharge her home. The patient was discharged home with meclizine, which seems to have helped improve her symptoms here, she was also given a 5-day course of prednisone and Zofran in case she does have any further nausea or vomiting. The patient was also referred to outpatient PT for treatment of benign paroxysmal positional vertigo. The patient was told to followup with her primary care physician in the next several days to ensure that her symptoms had resolved. If the patient's symptoms continued, we would recommend referral to ENT. The patient was discharged home in stable condition. PHYSICAL EXAMINATION AT DISCHARGE: VITAL SIGNS: Temperature 36.7, heart rate 65, blood pressure 142/70, respiratory rate 18, O2 saturation 95% on room air. GENERAL: The patient does not appear to be in any acute distress. She is resting comfortably in the bed. HEENT: Pupils are equal and reactive to light. Extraocular muscles are intact. Mucous membranes are moist. The patient does have some mild nystagmus, but this is much improved from initial examination. NECK: Supple. No thyromegaly, no JVD. Trachea is midline. LYMPH NODES: There is no cervical or axillary lymphadenopathy noted. CARDIOVASCULAR: S1, S2, regular rate and rhythm. No murmurs, rubs, or gallops. LUNGS: Clear to auscultation bilaterally. No wheezes, rhonchi, or crackles. ABDOMEN: Soft, nontender, nondistended. Bowel sounds are present in all 4 quadrants. EXTREMITIES: There is no lower extremity edema. Peripheral pulses are palpable. There is no cyanosis or clubbing. SKIN: No skin rash, lesions, cellulitis, or abscesses. NEUROLOGIC: The patient is alert, oriented x3. Cranial nerves 2-12 are grossly intact. Strength is grossly normal. Sensations are intact. LABORATORY: WBC is 7.7, hemoglobin 12.2, hematocrit 36.0, platelet count 415. Sodium 142, potassium 3.6, chloride 109, carbon dioxide 25, BUN 17, creatinine 0.7, glucose 123, glycosylated hemoglobin 6.1, calcium 8.9, total bilirubin 0.5 , AST 18. ALT 18. Alkaline phosphatase 57. Troponin less than 0.04. Total protein 6.7, albumin 4.0. TSH 146. UA negative. IMAGING: CT head, impression: No CT evidence of acute intracranial abnormality, specifically no CT evidence of acute infarct, intracranial hemorrhage, mass effect, midline shift or hydrocephalus. MRA of the brain, impression: Normal brain MRA. No stenosis or aneurysm. No significant change compared to MR angio in October. MRI of the brain, impression: 1. No acute infarct, intracranial hemorrhage, mass lesion or hydrocephalus. 2. Minimal ill-defined T2 hyperintensities are seen in subcortical parietal white matter, right greater than left, nonspecific, most commonly representing chronic microangiopathy. MRA of the neck, impression: No evidence for acute abnormality or significant stenosis of the cervical, vertebral or carotid arteries. Note that the most proximal aspect of the left vertebral artery is somewhat indistinct likely from imaging artifact this nondominant vessel arises from the top of the aortic arch. FOLLOWUP/RECOMMENDATIONS: The patient is being discharged home with her . She has had improvement in her severe vertigo and intractable nausea, vomiting. We believe that the cause of her acute vertigo was vestibular neuritis. She is being treated with steroids as well as meclizine and Zofran for her symptoms. She has had significant improvement in her symptoms prior to discharge, she was able to get up and around with a walker. She was discharged home with a walker. She will followup with her primary care physician. We have also referred her to outpatient physical therapy for further workup for possible BPPV. The patient may also need referral to ENT if the symptoms do not resolve. She will followup with her primary care physician. TIME SPENT ON DISCHARGE: Greater than 30 minutes were spent on discharge. JOB #: [id number] EXT JOB #:[id number] DENEEN
== END 2017-03-28 14:00 | disposition home or self-care (01) | DRG 156 ==
LOC: EDUNIT# → ED 19:57 → MS 23:34 → OBSVTOIN 03-26 13:00 → MS 03-26 13:59
PROVIDERS: ADMIT Internal Medicine; ATTEND Internal Medicine
DX: H93.3X9 Disorders of unspecified acoustic nerve (principal); R42 Dizziness and giddiness; R11.2 Nausea with vomiting, unspecified; D72.829 Elevated white blood cell count, unspecified; H81.10 Benign paroxysmal vertigo, unspecified ear; M62.838 Other muscle spasm; K21.9 Gastro-esophageal reflux disease without esophagitis; E86.0 Dehydration; H55.00 Unspecified nystagmus; I10 Essential (primary) hypertension; H35.30 Unspecified macular degeneration; D50.9 Iron deficiency anemia, unspecified; Z86.73 Personal history of transient ischemic attack (TIA), and cerebral infarction without residual deficits; E03.9 Hypothyroidism, unspecified; E11.9 Type 2 diabetes mellitus without complications; D47.3 Essential (hemorrhagic) thrombocythemia; Z79.82 Long term (current) use of aspirin; Z79.84 Long term (current) use of oral hypoglycemic drugs; Z79.899 Other long term (current) drug therapy
CPT/HCPCS: 36415; 70450; 70544; 70549; 70551; 80053; 81001; 81003; 83036; 83690; 84443; 84484; 85025; 87086; 93005; 93010; 96365; 96375; 96376; 99284; 99285

== ENCOUNTER 2017-04-12 22:16 | Outpatient (CLI) | payer MEDICARE, OTHER | END 2017-04-12 22:17 | disposition critical access hospital (66) | LOC: EMS 22:16 | PROVIDERS: ATTEND Surgery | DX: R00.2 Palpitations (principal); F41.9 Anxiety disorder, unspecified | CPT/HCPCS: A0425; A0427 ==

== ENCOUNTER 2017-04-12 22:36 | Emergency (ER) | payer MEDICARE, OTHER ==
--- NOTE | 2017-04-12 23:39 | ED Physician Documentation ---
PD HPI CHEST PAIN - Stated complaint Stated Complaint: DIZZINESS - Chief complaint Chief Complaint: Cardiac - History obtained from History obtained from: Patient, EMS - History of Present Illness Timing - onset: How many hours ago (1) Timing - onset during: Rest Timing - details: Abrupt onset, Now resolved Associated symptoms: Palpitations. No: Shortness of air, Diaphoresis, Nausea, Vomiting, Feeling faint / dizzy Similar symptoms before: Has not had sx before Recently seen: Clinic - Additional information Additional information: Patient is a 81 year old female who is presenting to the emergency department for palpitations. According to patient and ems patient was sitting on the cough and she felt like her heart was racing and she had a dullness on the back of her head. Patient states that she called ems. When ems arrived patient was a little anxious and her heart rate was 130. While enroute patient's heart rate improved. Upon initial evaluation in the emergency department patient stated that she was feeling better and denied any complaints. PD PAST MEDICAL HISTORY - Past Medical History Cardiovascular: Hypertension Respiratory: None Neuro: None Endocrine/Autoimmune: HyPOthyroidism GI: GERD : Kidney stones HEENT: Other Psych: Claustrophobia Musculoskeletal: Osteoarthritis Derm: None - Past Surgical History Past Surgical History: Yes General: Cholecystectomy, Appendectomy, Colonoscopy /[employer]: section, Hysterectomy HEENT: Cataracts - Present Medications Home Medications: Ambulatory Orders Medication Instructions Recorded Confirmed Levothyroxine [Synthroid] 25 mcg PO QDAC 03/18/14 04/12/17 Lisinopril 10 mg PO DAILY 03/18/14 04/12/17 amLODIPine [Norvasc] 10 mg PO DAILY 03/18/14 04/12/17 metFORMIN [Glucophage] 500 mg ORAL DAILYWM 10/16/16 04/12/17 Aspirin Chewable [St Dilan 81 mg PO DAILYWM tablet 10/17/16 04/12/17 Aspirin] Hydroxyurea [Hydrea] 500 mg PO DAILY 02/18/17 04/12/17 Simvastatin 20 mg PO QPM 03/25/17 04/12/17 Omeprazole 40 mg PO QDAC 03/26/17 04/12/17 Meclizine [Antivert] 25 mg PO Q6HR PRN #45 tablet 03/28/17 04/12/17 Ondansetron [Zofran Odt] 8 mg PO Q8H PRN #30 tab.rapdis 03/28/17 04/12/17 Prednisone 10 mg PO DAILY #5 tablet 03/28/17 04/12/17 - Allergies Allergies/Adverse Reactions: Allergies Allergy/AdvReac Type Severity Reaction Status Date / Time No Known Drug Allergies Allergy Verified 03/25/17 20:07 - Social History Does the pt smoke?: No Smoking Status: Never smoker Does the pt drink ETOH?: No Does the pt have substance abuse?: No - Immunizations Immunizations are current?: Yes - POLST Patient has POLST: No Results - Vitals Vitals: Vital Signs - 24 hr 04/12/17 04/12/17 04/12/17 22:36 22:59 23:08 Temperature 36.5 C Heart Rate 112 H 103 H 97 Respiratory 16 14 16 Rate Blood Pressure 147/70 H 123/66 103/64 O2 Saturation 96 97 97 04/12/17 23:29 Temperature Heart Rate 98 Respiratory 16 Rate Blood Pressure 120/70 O2 Saturation 96 Oxygen O2 Source Room air - Labs Labs: Laboratory Tests 04/12/17 04/12/17 04/12/17 23:39 23:39 23:39 WBC 6.3 RBC 3.87 L Hgb 12.3 Hct 35.8 L MCV 92.4 MCH 31.8 H MCHC 34.4 RDW 20.6 H Plt Count 309 MPV 7.0 L Neut # 5.8 Lymph # 0.4 L Bond # 0.1 Eos # 0.0 Baso # 0.0 Absolute Nucleated RBC 0.00 Nucleated RBCs 0.1 Sodium 135 Potassium 4.5 Chloride 100 L Carbon Dioxide 24 Anion Gap 11.0 BUN 16 Creatinine 1.0 Estimated GFR (MDRD) 53 L Glucose 287 H Calcium 9.3 Phosphorus 2.5 Magnesium 2.0 Total Bilirubin 0.4 AST 24 ALT 19 Alkaline Phosphatase 65 Troponin I 0.09 Total Protein 6.7 Albumin 3.7 Globulin 3.0 Albumin/Globulin Ratio 1.2 Lipase 32 TSH 04/12/17 23:39 WBC RBC Hgb Hct MCV MCH MCHC RDW Plt Count MPV Neut # Lymph # Bond # Eos # Baso # Absolute Nucleated RBC Nucleated RBCs Sodium Potassium Chloride Carbon Dioxide Anion Gap BUN Creatinine Estimated GFR (MDRD) Glucose Calcium Phosphorus Magnesium Total Bilirubin AST ALT Alkaline Phosphatase Troponin I Total Protein Albumin Globulin Albumin/Globulin Ratio Lipase TSH 1.34 Departure - Departure Disposition: 01 Home, Self Care Clinical Impression: Intermittent palpitations Condition: Good Instructions: ED Palpitations Follow-Up: primary,care provider [Other] - Within 3 Days Comments: Your diagnostics today were within normal limits aside from your renal function looked slightly worse which is a sign of dehydration. You will need to increase the amount of water your drink (64 oz daily). If your symptoms persist or are recurrent you should follow up with your pmd for further evaluation and care. You may return to the emergency department at any time for new, worsening or uncontrollable symptoms.
[2017-04-12 23:53] LABS: BASOPHILS % (AUTO) 0.1 %; EOSINOPHILS % (AUTO) 0.2 %; HCT - HEMATOCRIT 35.8 % (37.0-47.0); HGB - HEMOGLOBIN 12.3 g/dL (12.0-16.0); LYMPHOCYTES # (AUTO) 0.4 10^3/uL (1.5-3.5); LYMPHOCYTES % (AUTO) 6.5 %; MEAN CORPUSCULAR HEMOGLOBIN 31.8 pg (27.0-31.0); MEAN CORPUSCULAR HGB CONC 34.4 g/dL (32.0-36.0); MEAN CORPUSCULAR VOLUME 92.4 fL (81.0-99.0); MONOCYTES # (AUTO) 0.1 10^3/uL (0.0-1.0); MONOCYTES % (AUTO) 1.1 %; NEUTROPHILS # (AUTO) 5.8 10^3/uL (1.5-6.6); NEUTROPHILS % (AUTO) 92.1 %; NUCLEATED RED BLOOD CELLS AUTO 0.1 /100WBC; RED BLOOD COUNT 3.87 10^6/uL (4.20-5.40); RED CELL DISTRIBUTION WIDTH 20.6 % (12.0-15.0); UNCORRECTED WHITE BLOOD COUNT 6.3 x10^3/uL; WHITE BLOOD COUNT 6.3 x10^3/uL (4.8-10.8)
[2017-04-13] LABS: ALBUMIN/GLOBULIN RATIO 1.2 (1.0-2.2); BILIRUBIN,TOTAL 0.4 mg/dL (0.2-1.0); CALCIUM 9.3 mg/dL (8.5-10.3); PHOSPHORUS 2.5 mg/dL (2.5-4.6); POTASSIUM 4.5 mmol/L (3.5-5.0); TOTAL PROTEIN 6.7 g/dL (6.7-8.2)
[2017-04-13] MEDS ORDERED: SODIUM CHLORIDE 0.9% 500 ML IV ONE (00:26)
[2017-04-13 01:12] VITALS: BP 143/74
== END 2017-04-13 01:12 | disposition home or self-care (01) ==
LOC: EDUNIT# → ED 22:36
DX: R00.2 Palpitations (principal); I10 Essential (primary) hypertension; E03.9 Hypothyroidism, unspecified; K21.9 Gastro-esophageal reflux disease without esophagitis; M19.90 Unspecified osteoarthritis, unspecified site; Z87.442 Personal history of urinary calculi; Z79.82 Long term (current) use of aspirin
CPT/HCPCS: 36415; 80053; 83690; 83735; 84100; 84443; 84484; 85025; 93005; 93010; 99284

== ENCOUNTER 2018-10-22 15:12 | Outpatient (CLI) | payer MEDICARE, OTHER ==
--- NOTE | 2018-10-23 09:06 | DEXA Report ---
Reason: AGE-RELATED OSTEOPOROSIS W/O CURRENT PATHOLOGICAL Procedure Date: 10/22/2018 Accession Number: [id number] / [id number] Procedure: DEX - Dexa Spine and/or Hip CPT Code: FULL RESULT: EXAM: Dexa Spine and/or Hip DATE: 10/22/2018 3:51 PM CLINICAL HISTORY: AGE-RELATED OSTEOPOROSIS W/O CURRENT PATHOLOGICAL TECHNIQUE: Dual energy x-ray absorptiometry (DXA) was performed on a [employer] System. Regions measured are the AP Spine, femoral neck, and if needed forearm. COMPARISON: None. In accordance with the International Society for Clinical Densitometry (ISCD) guidelines, data from previous exams may be reanalyzed using current recommendations and techniques. This is done to allow a more accurate basis for comparison with the current study. FINDINGS: The data for the lumbar spine is as follows: BMD (g/cm/cm) T-SCORE Z-SCORE REGION L1 1.591 3.8 6.0 L2 1.532 2.8 5.0 L3 1.393 1.6 3.8 L4 1.328 1.1 3.3 TOTAL 1.462 2.4 4.5 NOTE: All evaluable vertebrae are used for classification The data for the hip is as follows: BMD (g/cm/cm) T-SCORE Z-SCORE REGION Neck 0.797 -1.7 0.7 TOTAL 0.738 -2.1 0.2 NOTE: The femoral neck or total proximal femur, whichever is lowest, is used for classification. IMPRESSION: THE WHO CLASSIFICATION BASED ON THE INTERNATIONAL REFERENCE STANDARD IS OSTEOPENIA. THE FRACTURE RISK IS INCREASED. RECOMMENDATION: Patients with diagnosis of osteoporosis or osteopenia should have regular bone mineral density assessment. For those eligible for Medicare, routine testing is allowed once every 2 years. Testing frequency can be increased for patients who have rapidly progressing disease or for those who are receiving medical therapy to restore bone mass. COMMENT: World Health Organization (WHO) definitions for osteoporosis and osteopenia: NORMAL BMD: T-score at -1.0 or higher, fracture risk is low OSTEOPENIA BMD: T-score between -1.0 and -2.5, fracture risk is increased. OSTEOPOROSIS BMD: T-score at -2.5 or lower, fracture risk is high. National Osteoporosis Foundation recommends: 1. Obtain adequate dietary calcium (at least 1200 mg per day) and vitamin D (400-800 international units per day). 2. Participate, as appropriate, in regular weightbearing and muscle-strengthening exercise. 3. Avoid tobacco use and reduce alcohol and caffeine intake. 4. For more detailed information see the website at www.NOF.org.
== END 2018-10-22 15:13 | disposition home or self-care (01) ==
LOC: DI 15:12
PROVIDERS: ATTEND Physician Assistant
DX: Z13.820 Encounter for screening for osteoporosis (principal); M85.89 Other specified disorders of bone density and structure, multiple sites; N95.1 Menopausal and female climacteric states
CPT/HCPCS: 77080

== ENCOUNTER 2018-10-22 15:14 | Outpatient (CLI) | payer MEDICARE, OTHER ==
--- NOTE | 2018-10-23 08:42 | Mammography Report ---
Reason: SCREENING MAMMO Procedure Date: 10/22/2018 Accession Number: [id number] / [id number] Procedure: DANIEL - Screening Mammo w/Maurilio CPT Code: FULL RESULT: EXAM: Screening Mammo w/Maurilio DATE: 10/22/2018 4:05 PM CLINICAL HISTORY: Screening encounter. Personal history of left breast lumpectomy with benign pathology. Family history of breast cancer in the sister at age 80. TECHNIQUE: Bilateral CC, laterally exaggerated CC, MLO views were obtained. COMPARISON: 10/15/2016 through 09/15/2012. FINDINGS: The breasts demonstrate scattered fibroglandular densities bilaterally. Typically benign coarse calcifications are seen bilaterally. A known right breast retroareolar cyst is again seen. A right breast biopsy marker is noted. Both are typically benign findings. No suspicious masses, clustered microcalcifications, or regions of architectural distortion are identified. IMPRESSION: Benign findings RECOMMENDATION: Routine annual screening unless otherwise clinically indicated. BIRADS CATEGORY 2: Benign findings STANDARD QUALIFYING STATEMENTS: 1. This examination was not reviewed with the aid of Computer-Aided Detection (CAD). 2. A negative or benign imaging report should not preclude biopsy if clinically suspicious findings are present. 3. Dense breasts may obscure an underlying neoplasm. 4. This examination was reviewed with the aid of 3D breast imaging (tomosynthesis).
== END 2018-10-22 15:15 | disposition home or self-care (01) ==
LOC: DI 15:14
PROVIDERS: ATTEND Physician Assistant
DX: Z12.31 Encounter for screening mammogram for malignant neoplasm of breast (principal); Z80.3 Family history of malignant neoplasm of breast
CPT/HCPCS: 77063; 77067

== ENCOUNTER 2019-10-18 15:35 | Outpatient (CLI) | payer MEDICARE, OTHER | END 2019-10-18 15:36 | disposition critical access hospital (66) | LOC: EMS 15:35 | PROVIDERS: ATTEND Surgery | DX: R13.10 Dysphagia, unspecified (principal) | CPT/HCPCS: A0425; A0429 ==

== ENCOUNTER 2019-10-18 15:54 | Emergency (ER) | payer MEDICARE, OTHER ==
[2019-10-18 16:05] VITALS: BP 154/85
[2019-10-18] MEDS ORDERED: MECLIZINE 12.5 MG TABLET PO STA (16:12)
--- NOTE | 2019-10-18 16:14 | ED Physician Documentation ---
History of Present Illness - Stated complaint Stated Complaint: DIFFICULTY SWALLOWING - Chief complaint Chief Complaint: General - History obtained from History obtained from: Patient, Family - History of Present Illness Timing: Today Pain level max: 0 Pain level now: 0 - Additonal information Additional information: 84-year-old female with a long history of vertigo. This is been ongoing issue for years. She was started on a scopolamine patch yesterday. Has a very dry mouth today. States it is hard to swallow because her mouth is so dry. No headache. Nothing makes it better or worse. No chest pain. No shortness of breath. Scopolamine patch was removed by EMS. Review of Systems Constitutional: denies: Fever, Chills Ears: denies: Ear pain Nose: denies: Rhinorrhea / runny nose, Congestion Throat: denies: Sore throat Cardiac: denies: Chest pain / pressure GI: denies: Vomiting, Diarrhea Musculoskeletal: denies: Neck pain, Back pain Neurologic: denies: Headache PD PAST MEDICAL HISTORY - Past Medical History Cardiovascular: Hypertension Respiratory: None Endocrine/Autoimmune: HyPOthyroidism GI: GERD : Kidney stones HEENT: Other Psych: Claustrophobia Musculoskeletal: Osteoarthritis Derm: None - Past Surgical History Past Surgical History: Yes General: Cholecystectomy, Appendectomy, Colonoscopy /[employer]: section, Hysterectomy HEENT: Cataracts - Present Medications Home Medications: Ambulatory Orders Medication Instructions Recorded Confirmed Levothyroxine [Synthroid] 25 mcg PO QDAC 03/18/14 09/14/19 Lisinopril 10 mg PO DAILY 03/18/14 09/14/19 amLODIPine [Norvasc] 10 mg PO DAILY 03/18/14 09/14/19 Simvastatin 20 mg PO QPM 03/25/17 09/14/19 Omeprazole 40 mg PO QDAC 03/26/17 09/14/19 Aspirin Chewable [St Dilan 81 mg PO DAILY 07/07/18 09/14/19 Aspirin] Hydroxyurea 500 mg PO UD 90 Days #40 capsule 04/24/19 09/14/19 Atenolol 50 mg PO DAILY 05/11/19 09/14/19 - Allergies Allergies/Adverse Reactions: Allergies Allergy/AdvReac Type Severity Reaction Status Date / Time No Known Drug Allergies Allergy Verified 10/18/19 16:05 - Social History Does the pt smoke?: No Smoking Status: Never smoker Does the pt drink ETOH?: No Does the pt have substance abuse?: No - Immunizations Immunizations are current?: Yes - POLST Patient has POLST: No PD ED PE NORMAL - Vitals Vital signs reviewed: Yes - General General: Alert and oriented X 3, No acute distress, Well developed/nourished - HEENT HEENT: PERRL, Other (Patient with a dry mouth and tongue) - Neck Neck: Supple, no meningeal sign - Cardiac Cardiac: RRR, Strong equal pulses - Respiratory Respiratory: No respiratory distress, Clear bilaterally - Abdomen Abdomen: Soft, Non tender, Non distended - Derm Derm: Warm and dry - Extremities Extremities: No edema - Neuro Neuro: Alert and oriented X 3, doctor assistant 2-12 intact, No motor deficit, No sensory deficit, Normal speech Eye Opening: Spontaneous Motor: Obeys Commands Verbal: Oriented GCS Score: 15 - Psych Psych: Normal mood, Normal affect Results - Vitals Vitals: Vital Signs - 24 hr 10/18/19 16:00 Temperature 36.7 C Heart Rate 85 Respiratory 20 Rate Blood Pressure 154/85 H O2 Saturation 97 Oxygen O2 Source Room air PD MEDICAL DECISION MAKING - ED course Complexity details: considered differential, d/w patient, d/w family ED course: Patient with a medication side effect. Scopolamine is causing a dry mouth. She is swallowing without difficulty. No signs of stroke. No acute neurological deficits. We will stop the scopolamine and this should improve. Patient counseled regarding signs and symptoms for which I believe and urgent re- evaluation would be necessary. Patient with good understanding of and agreement to plan and is comfortable going home at this time This document was made in part using voice recognition software. While efforts are made to proofread this document, sound alike and grammatical errors may occur. Departure - Departure Disposition: 01 Home, Self Care Clinical Impression: Medication side effect Condition: Good Instructions: ED Drug React Adverse Other Follow-Up: Savanna Kwok PA-C [Primary Care Provider] - Within 1 week Comments: Return if you worsen. Stop the scopolamine patches and your dry mouth will resolve. Return if you worsen. Drink plenty of water.
== END 2019-10-18 16:22 | disposition home or self-care (01) ==
LOC: EDUNIT# → ED 15:54
DX: R68.2 Dry mouth, unspecified (principal); T44.3X5A Adverse effect of other parasympatholytics [anticholinergics and antimuscarinics] and spasmolytics, initial encounter; I10 Essential (primary) hypertension; Z79.82 Long term (current) use of aspirin
CPT/HCPCS: 99283; A9270

== ENCOUNTER 2019-10-19 04:30 | Emergency (ER) | payer MEDICARE, OTHER ==
--- NOTE | 2019-10-19 05:31 | ED Physician Documentation ---
History of Present Illness - Stated complaint Stated Complaint: LORI LIPS - Chief complaint Chief Complaint: Neuro - History obtained from History obtained from: Patient, Family - History of Present Illness Timing: Today - Additonal information Additional information: 84-year-old female used a scopolamine patch for the first time this week and she had it in place overnight and developed severe dry mouth and began to become concerned with her symptoms thinking she might be having a stroke. She came to the emergency department and took the patch off prior to arrival here. She was seen and examined by Dr. Qureshi and discharged with a diagnosis of medication side effect. This morning she has persistence of symptoms and feels some tingling to her lower lip. She is complaining of dryness to her lips and throat. She is not having any lateralizing signs and her numbness is to the bottom lip only. She states that her vertigo is improved right now and she otherwise has no other specific symptoms. Review of Systems Constitutional: denies: Fever Eyes: denies: Decreased vision Ears: denies: Ear pain Nose: denies: Rhinorrhea / runny nose, Congestion Throat: denies: Sore throat Cardiac: denies: Chest pain / pressure, Palpitations Respiratory: denies: Dyspnea, Cough GI: reports: Nausea (resolved), Vomiting (resolved). 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, Hysterectomy HEENT: Cataracts - Present Medications Home Medications: Ambulatory Orders Medication Instructions Recorded Confirmed Levothyroxine [Synthroid] 25 mcg PO QDAC 03/18/14 09/14/19 Lisinopril 10 mg PO DAILY 03/18/14 09/14/19 amLODIPine [Norvasc] 10 mg PO DAILY 03/18/14 09/14/19 Simvastatin 20 mg PO QPM 03/25/17 09/14/19 Omeprazole 40 mg PO QDAC 03/26/17 09/14/19 Aspirin Chewable [St Dilan 81 mg PO DAILY 07/07/18 09/14/19 Aspirin] Hydroxyurea 500 mg PO UD 90 Days #40 capsule 04/24/19 09/14/19 Atenolol 50 mg PO DAILY 05/11/19 09/14/19 - Allergies Allergies/Adverse Reactions: Allergies Allergy/AdvReac Type Severity Reaction Status Date / Time No Known Drug Allergies Allergy Verified 10/19/19 04:43 - Social History Does the pt smoke?: No Smoking Status: Never smoker Does the pt drink ETOH?: No Does the pt have substance abuse?: No - Immunizations Immunizations are current?: Yes - POLST Patient has POLST: No PD ED PE NORMAL - Vitals Vital signs reviewed: Yes (hypertensive mild ) - General General: Alert and oriented X 3, No acute distress, Well developed/nourished - HEENT HEENT: Atraumatic, PERRL, EOMI - Neck Neck: Supple, no meningeal sign, No bony TTP - Cardiac Cardiac: RRR, No murmur - Respiratory Respiratory: No respiratory distress, Clear bilaterally - Abdomen Abdomen: Soft, Non tender - Derm Derm: Normal color, Warm and dry, No rash - Extremities Extremities: No deformity, No edema - Neuro Neuro: Alert and oriented X 3, pin inserter 2-12 intact, No motor deficit, No sensory deficit, Normal speech Eye Opening: Spontaneous Motor: Obeys Commands Verbal: Oriented GCS Score: 15 - Psych Psych: Normal mood, Normal affect Results - Vitals Vitals: Vital Signs - 24 hr 10/19/19 04:30 Temperature 36.8 C Heart Rate 72 Respiratory 19 Rate Blood Pressure 144/76 H O2 Saturation 99 Oxygen O2 Source Room air PD MEDICAL DECISION MAKING - ED course Complexity details: reviewed results, re-evaluated patient, considered differential, d/w patient, d/w family ED course: 84-year-old female with a history of vertigo has improvement in her symptoms after using a scopolamine patch and now has persistent dry mouth and lips and some tingling in her lower lip. She was concerned about the possibility of stroke and is come to the emergency department for evaluation at 5:00 in the morning. Her neurologic exam is nonfocal and without concern of any kind. She is reassured. Half-life of Scopolamine is 9-1/2 hours and it has been 13 hours since she has remove the patch. Departure - Departure Disposition: 01 Home, Self Care Clinical Impression: Medication side effect Condition: Stable Instructions: ED Drug React Adverse Other Follow-Up: Savanna Kwok PA-C [Primary Care Provider] -
[2019-10-19 05:36] VITALS: BP 128/67
== END 2019-10-19 05:45 | disposition home or self-care (01) ==
LOC: ED 04:30
DX: R68.2 Dry mouth, unspecified (principal); R20.2 Paresthesia of skin; T44.3X5A Adverse effect of other parasympatholytics [anticholinergics and antimuscarinics] and spasmolytics, initial encounter; I10 Essential (primary) hypertension; Z79.82 Long term (current) use of aspirin
CPT/HCPCS: 99281; 99282

== ENCOUNTER 2019-10-20 08:54 | Outpatient (CLI) | payer MEDICARE, OTHER | END 2019-10-20 08:55 | disposition critical access hospital (66) | LOC: EMS 08:54 | PROVIDERS: ATTEND Surgery | DX: R47.01 Aphasia (principal); R20.0 Anesthesia of skin | CPT/HCPCS: A0425; A0429 ==

== ENCOUNTER 2019-10-20 09:14 | Emergency (ER) | payer MEDICARE, OTHER ==
--- NOTE | 2019-10-20 10:02 | ED Physician Documentation ---
History of Present Illness - Stated complaint Stated Complaint: DIFF SWALLOWING - Chief complaint Chief Complaint: General - History obtained from History obtained from: Patient, Family - History of Present Illness Timing: How many days ago (2) Severity Comments: moderate Quality: dry mouth Radiates to: none Improved by: nothing Worsened by: swallowing Associated symptoms: dry mouth, denies sob, cough, nausea, vomiting, fever - Treatment prior to arrival Treatment prior to arrival: benadryl and scopolamine patch - Additonal information Additional information: 84 y/o F with hx of vertigo used to take meclizine but due to side effects has been taking scopolamine patch. She felt anabel patch wasn't working so took it off a day ago and then took some benadryl instead for her symptoms but now complains of significant dry mouth that makes it difficult to swallow. Denies sore throat, speech changes, trouble breating. Review of Systems Ten Systems: 10 systems reviewed and negative Constitutional: reports: Reviewed and negative Nose: reports: Reviewed and negative Throat: reports: Reviewed and negative Cardiac: reports: Reviewed and negative Respiratory: reports: Reviewed and negative GI: reports: Reviewed and negative Musculoskeletal: reports: Reviewed and negative Neurologic: reports: Reviewed and negative Endocrine: reports: Swollen lymph nodes Immunocompromised: reports: Reviewed and negative PD PAST MEDICAL HISTORY - Past Medical History Past Medical History: Yes Cardiovascular: Hypertension Respiratory: None Endocrine/Autoimmune: HyPOthyroidism GI: GERD : Kidney stones HEENT: Other Psych: Claustrophobia Musculoskeletal: Osteoarthritis Derm: None - Past Surgical History Past Surgical History: Yes General: Cholecystectomy, Appendectomy, 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 /[employer]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: section, Hysterectomy HEENT: Cataracts - Present Medications Home Medications: Ambulatory Orders Medication Instructions Recorded Confirmed Levothyroxine [Synthroid] 25 mcg PO QDAC 03/18/14 09/14/19 Lisinopril 10 mg PO DAILY 03/18/14 09/14/19 amLODIPine [Norvasc] 10 mg PO DAILY 03/18/14 09/14/19 Simvastatin 20 mg PO QPM 03/25/17 09/14/19 Omeprazole 40 mg PO QDAC 03/26/17 09/14/19 Aspirin Chewable [St Dilan 81 mg PO DAILY 07/07/18 09/14/19 Aspirin] Hydroxyurea 500 mg PO UD 90 Days #40 capsule 04/24/19 09/14/19 Atenolol 50 mg PO DAILY 05/11/19 09/14/19 Carbamide Peroxide Otic Drop 10 drops OT BID #1 bottle 10/20/19 [Debrox Otic Drops] - Allergies Allergies/Adverse Reactions: Allergies Allergy/AdvReac Type Severity Reaction Status Date / Time No Known Drug Allergies Allergy Verified 10/19/19 04:43 - Social History Does the pt smoke?: No Smoking Status: Never smoker Does the pt drink ETOH?: No Does the pt have substance abuse?: No - Immunizations Immunizations are current?: Yes - POLST Patient has POLST: No PD ED PE NORMAL - Vitals Vital signs reviewed: Yes - General General: Alert and oriented X 3, No acute distress, Well developed/nourished - HEENT HEENT: Atraumatic, PERRL, Moist mucous membranes, Pharynx benign, Dentition benign - Neck Neck: Supple, no meningeal sign, Thyroid normal, No JVD - Cardiac Cardiac: RRR, No murmur, No gallop, No rub, Strong equal pulses - Respiratory Respiratory: No respiratory distress, Clear bilaterally - Abdomen Abdomen: Soft, Non tender, Non distended - Female Female : Deferred - Rectal Rectal: Deferred - Derm Derm: Normal color, Warm and dry, No rash - Extremities Extremities: No deformity, No edema - Neuro Neuro: Alert and oriented X 3 Eye Opening: Spontaneous Motor: Obeys Commands Verbal: Oriented GCS Score: 15 - Psych Psych: Normal mood, Normal affect PD ED PE EXPANDED - HEENT HEENT: Pharynx normal, Pharyngeal erythema, Other (no trismus, uvula is midline, no drooling) Results - Vitals Vitals: Oxygen O2 Source Room air PD MEDICAL DECISION MAKING - ED course Complexity details: considered differential, d/w patient, d/w family ED course: ddx- medication side effect, pharyngitis, POLISHER NUMERAL, uvulitis, cva 84 y/o F c/o difficulty swallowing due to dry mouth since starting on a scopolamine patch for vertigo. She discontinued the patdch a day ago but then took benadryl instead. Given the effects of a scopolamine patch last 72 hours I suspect she is having antihistamine adverse effects from taking this combined with benadryl. Her neuro examination is normal as his her HEENT exam as documented. suspect this is an adverse effect from her antihistamine use. Advised pt to discontinue her antihistamine use for a few days at least and f/u with her PCP. Departure - Departure Disposition: 01 Home, Self Care Clinical Impression: Medication adverse effect Qualifiers: Encounter type: subsequent encounter Qualified Code(s): T50.905D - Adverse effect of unspecified drugs, medicaments and biological substances, subsequent encounter Condition: Stable Record reviewed to determine appropriate education?: Yes Prescriptions: Carbamide Peroxide Otic Drop [Debrox Otic Drops] 10 drops OT BID #1 bottle Comments: Your symptoms today appear to be due to your benadryl and scopolamine patch. The scopolamine patch effects last 72 hours. So it's likely it's still causing you symptom sand when combined with benadryl this causes worsening mouth dryness. Do not combine these two drugs. You however have no evidence of a stroke on your examination today. Use the ear drops for some ear wax in your left ear as this may improve your vertigo. Follow up with your regular doctor for further management of your vertigo. If you have worsening symptoms such as weakness, numbness, difficulty speaking or slurring return to the ED. Discharge Date/Time: 10/20/19 10:08
[2019-10-20 10:08] VITALS: BP 129/66
== END 2019-10-20 10:08 | disposition home or self-care (01) ==
LOC: EDUNIT# → ED 09:14
DX: R68.2 Dry mouth, unspecified (principal); R13.10 Dysphagia, unspecified; T44.3X5A Adverse effect of other parasympatholytics [anticholinergics and antimuscarinics] and spasmolytics, initial encounter; I10 Essential (primary) hypertension; Z79.82 Long term (current) use of aspirin
CPT/HCPCS: 99283; 99284

== ENCOUNTER 2019-10-30 16:02 | Outpatient (CLI) | payer MEDICARE, OTHER | END 2019-10-30 16:03 | disposition EMS.NT | LOC: EMS 16:02 | PROVIDERS: ATTEND Surgery | DX: G24.3 Spasmodic torticollis (principal) ==

== ENCOUNTER 2020-03-05 17:34 | Outpatient (CLI) | payer MEDICARE, OTHER | END 2020-03-05 17:35 | disposition EMS.NT | LOC: EMS 17:34 | PROVIDERS: ATTEND Surgery | DX: R25.2 Cramp and spasm (principal); R20.0 Anesthesia of skin ==

== ENCOUNTER 2021-05-01 11:49 | Outpatient (CLI) | payer MEDICARE | END 2021-05-01 11:50 | disposition critical access hospital (66) | LOC: EMS 11:49 | DX: R20.0 Anesthesia of skin (principal); R20.2 Paresthesia of skin | CPT/HCPCS: A0425; A0429 ==

== ENCOUNTER 2021-05-01 12:10 | Emergency (ER) | payer MEDICARE, OTHER ==
--- NOTE | 2021-05-01 13:01 | ED Physician Documentation ---
PD HPI FOCAL NEURO - Stated complaint Stated Complaint: L ARM NUMBNESS - Chief complaint Chief Complaint: Neuro - History obtained from History obtained from: Patient, Family - History of Present Illness Timing - onset: How many hours ago (1) Timing - duration: Minutes (10) Timing - details: Gradual onset Severity of deficit: Mild Weakness: No: Face, Arm, Hand, Leg, Foot, Right, Left Numbness: Hand, Left. No: Face, Arm, Leg, Foot, Right, Other Associated symptoms: No: Headache, Nausea / vomiting, Seizure, Syncope, Fall, Head injury, Chest pain, Neck pain, Back pain, Fever Contributing factors: negative: Anticoagulated, Vascular dz, Atrial fibrillation Baseline status: positive: A&OX3, ambulatory, indep Similar symptoms before: Diagnosis (TIA in the past.) Recently seen: Not recently seen - Additional information Additional information: Patient is an 85-year-old female who states she was making the bed at home today when she felt tingling in her left hand. She did not have any difficulty using the hand. Nothing made it better or worse. It did not extend past the hand. Did not involve the arm, leg or face. She states that her mouth did feel dry. This lasted for about 10 minutes today. Symptoms have now fully resolved. She states she had a TIA about 2 years ago. Concerned about another TIA. No facial droop. No difficulty with speech. 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, Hysterectomy HEENT: Cataracts - Present Medications Home Medications: Ambulatory Orders Medication Instructions Recorded Confirmed Levothyroxine [Synthroid] 25 mcg PO QDAC 03/18/14 05/01/21 Lisinopril 10 mg PO DAILY 03/18/14 05/01/21 amLODIPine [Norvasc] 10 mg PO DAILY 03/18/14 05/01/21 Simvastatin 20 mg PO QPM 03/25/17 05/01/21 Omeprazole 40 mg PO QDAC 03/26/17 05/01/21 atenoloL [Atenolol] 50 mg PO DAILY 05/11/19 05/01/21 Hydroxyurea [Hydrea] 500 mg PO UD #48 capsule 05/30/20 05/01/21 Escitalopram [Lexapro] 10 mg PO DAILY 05/01/21 05/01/21 - Allergies Allergies/Adverse Reactions: Allergies Allergy/AdvReac Type Severity Reaction Status Date / Time No Known Drug Allergies Allergy Verified 05/01/21 12:16 - Social History Does the pt smoke?: No Smoking Status: Never smoker Does the pt drink ETOH?: No Does the pt have substance abuse?: No - Immunizations Immunizations are current?: Yes - POLST Patient has POLST: No PD ED PE NORMAL - Vitals Vital signs reviewed: Yes - General General: Alert and oriented X 3, No acute distress - HEENT HEENT: Atraumatic, PERRL, Moist mucous membranes, Pharynx benign - Neck Neck: Supple, no meningeal sign - Cardiac Cardiac: RRR, Strong equal pulses - Respiratory Respiratory: No respiratory distress, Clear bilaterally - Abdomen Abdomen: Soft, Non tender, Non distended - Back Back: No CVA TTP, No spinal TTP - Derm Derm: Warm and dry - Extremities Extremities: No edema, No calf tenderness / cord - Neuro Neuro: Alert and oriented X 3, evaluation advisor 2-12 intact, No motor deficit, No sensory deficit, Normal speech Eye Opening: Spontaneous Motor: Obeys Commands Verbal: Oriented GCS Score: 15 NIHSS - Time Time: 13:00 - Level of Consciousness Level of consciousness: (0) Alert, Keenly responsive LOC Questions: (0) Answers both Q's correct LOC Commands: (0) Performs both correctly - Gaze Best Gaze: (0) Normal - Visual Visual: (0) No loss - Facial Palsy Facial Palsy: (0) Normal, symmetrical movement - Motor Arms (both separate) Motor Arm (right): (0) No drift Motor Arm (left): (0) No drift - Motor Legs (both separate) Motor Leg (right): (0) No drift Motor Leg (left): (0) No drift - Limb Ataxia Limb Ataxia: (0) Absent - Sensory Sensory: (0) Normal - Best Language Best Language: (0) No aphasia - Dysarthria Dysarthria: (0) Normal - Extinction and Inattention (formally neg Extinction and inattention: (0) No abnormality - Total Score/Results Total Score/Result: 0 Results - Vitals Vitals: Vital Signs - 24 hr 05/01/21 05/01/21 05/01/21 12:19 13:26 13:30 Temperature 36.7 C Heart Rate 71 63 63 Respiratory 18 20 18 Rate Blood Pressure 142/68 H 121/84 H 123/60 O2 Saturation 96 96 95 05/01/21 05/01/21 05/01/21 14:00 14:30 15:38 Temperature 36.7 C Heart Rate 62 61 65 Respiratory 17 15 12 Rate Blood Pressure 125/62 119/69 136/73 H O2 Saturation 97 97 98 05/01/21 15:47 Temperature Heart Rate 64 Respiratory 17 Rate Blood Pressure 149/67 H O2 Saturation 99 Oxygen O2 Source Room air - EKG (time done) 1309 Rate: Rate (enter#) (64) Rhythm: NSR Mcdavid: Normal Intervals: Normal CO QRS: Normal, LVH Ischemia: Normal ST segments, Q waves (III, aVF) - Labs Labs: Laboratory Tests 05/01/21 05/01/21 05/01/21 13:08 13:08 13:08 WBC 6.7 RBC 3.54 L Hgb 11.7 L Hct 35.6 L MCV 100.6 H MCH 33.1 H MCHC 32.9 RDW 13.9 Plt Count 517 H MPV 9.3 Neut # (Auto) 4.5 Lymph # (Auto) 1.4 L [place] # (Auto) 0.7 Eos # (Auto) 0.1 Baso # (Auto) 0.0 Absolute Nucleated RBC 0.00 Nucleated RBC % 0.0 Sodium 136 Potassium 4.5 Chloride 98 L Carbon Dioxide 26 Anion Gap 12.0 BUN 25 H Creatinine 1.0 Estimated GFR (MDRD) 53 L Glucose 121 H Calcium 9.5 Total Bilirubin 0.5 AST 19 ALT 19 Alkaline Phosphatase 61 Troponin I High Sens 5.5 Total Protein 7.0 Albumin 4.2 Globulin 2.8 Albumin/Globulin Ratio 1.5 Lipase 47 - Rads (name of study) CT angio head Radiology: Prelim report reviewed, EMP read contemporaneously, See rad report (No acute process. ) CT angio neck Radiology: Prelim report reviewed, EMP read contemporaneously, See rad report (There are no areas of hemodynamically significant stenosis, vascular occlusion or aneurysmal dilation within the neck vasculature.) PD MEDICAL DECISION MAKING - ED course Complexity details: reviewed old records, reviewed results, re-evaluated patient, considered differential, d/w patient, d/w family ED course: No acute findings on CT angiogram of the head and neck. Symptoms resolved prior to arrival in the emergency department. Paresthesia was confined to just the hand, unlikely to be a stroke. Recommend that she follow-up closely with her doctor for MRI and further evaluation. NIH stroke scale of 0 currently. Patient counseled regarding signs and symptoms for which I believe and urgent re-evaluation would be necessary. Patient with good understanding of and agreement to plan and is comfortable going home at this time This document was made in part using voice recognition software. While efforts are made to proofread this document, sound alike and grammatical errors may o ccur. Departure - Departure Disposition: 01 Home, Self Care Clinical Impression: Paresthesia Condition: Good Instructions: ED Paraesthesias Follow-Up: Savanna Kwok PA-C [Primary Care Provider] - Within 3 Days Comments: The cause of your symptoms is unclear today. There is no acute findings on your testing today. Please follow-up with your doctor for further care. Return if you worsen. You should follow-up with your doctor for an MRI of your brain. Discharge Date/Time: 05/01/21 16:09
[2021-05-01 13:14] LABS: BASOPHILS % (AUTO) 0.4 %; EOSINOPHILS # (AUTO) 0.1 10^3/uL (0.0-0.7); EOSINOPHILS % (AUTO) 2.1 %; HCT - HEMATOCRIT 35.6 % (37.0-47.0); HGB - HEMOGLOBIN 11.7 g/dL (12.0-16.0); LYMPHOCYTES # (AUTO) 1.4 10^3/uL (1.5-3.5); LYMPHOCYTES % (AUTO) 20.5 %; MEAN CORPUSCULAR HEMOGLOBIN 33.1 pg (27.0-31.0); MEAN CORPUSCULAR HGB CONC 32.9 g/dL (32.0-36.0); MEAN CORPUSCULAR VOLUME 100.6 fL (81.0-99.0); MEAN PLATELET VOLUME 9.3 fL (7.9-10.8); MONOCYTES # (AUTO) 0.7 10^3/uL (0.0-1.0); MONOCYTES % (AUTO) 9.7 %; NEUTROPHILS # (AUTO) 4.5 10^3/uL (1.5-6.6); NEUTROPHILS % (AUTO) 67.2 %; PLT - PLATELET COUNT 517 10^3/uL (130-450); RED BLOOD COUNT 3.54 10^6/uL (4.20-5.40); RED CELL DISTRIBUTION WIDTH 13.9 % (12.0-15.0); WHITE BLOOD COUNT 6.7 x10^3/uL (4.8-10.8)
--- NOTE | 2021-05-01 13:14 | XRAY Report ---
PROCEDURE: Chest 1 View X-Ray INDICATIONS: Chest Pain TECHNIQUE: One view of the chest was acquired. COMPARISON: Chest x-ray 10/16/2016 FINDINGS: Surgical changes and devices: None. Lungs and pleura: No pleural effusions or pneumothorax. Lungs are clear. Mediastinum: Mediastinal contours appear normal. Heart size is enlarged. Bones and chest wall: No suspicious bony lesions. Overlying soft tissues appear unremarkable. Old left rib fractures. IMPRESSION: No acute pulmonary process. Reviewed by: Shawna Melchor MD on 05/01/2021 1:12 PM PDT Approved by: Shawna Melchor MD on 05/01/2021 1:12 PM PDT Station ID: [id number]
[2021-05-01 13:27] LABS: ALBUMIN 4.2 g/dL (3.2-5.5); ALBUMIN/GLOBULIN RATIO 1.5 (1.0-2.2); BILIRUBIN,TOTAL 0.5 mg/dL (0.2-1.0); CALCIUM 9.5 mg/dL (8.5-10.3); POTASSIUM 4.5 mmol/L (3.5-5.0)
[2021-05-01] MEDS ORDERED: IOVERSOL 320 100 ML VIAL IVP ONE ×2 (14:10→19:35)
--- NOTE | 2021-05-01 15:42 | CT Report ---
PROCEDURE: ANGIO HEAD W/WO INDICATIONS: L hand numbness CONTRAST: IV CONTRAST: Optiray 320 ml: 80 PO CONTRAST: *NO PO CONTRAST TECHNIQUE: Precontrast 4.5 mm thick angled axial sections acquired from the foramen magnum to the vertex. Afte r the administration of intravenous contrast, 1 mm thick sections acquired through the [place] is. Postcontrast 4.5 mm thick sections then re-acquired from the foramen magnum to the vertex. 3-di mensional smlimjw-upcczqgmk-qwkixmbqem (MIP) and/or volume rendering reformats were acquired of the c entral intracranial vasculature. For radiation dose reduction, the following was used: automated ex posure control, adjustment of mA and/or kV according to patient size. COMPARISON: FINDINGS: Image quality: Excellent. Anterior circulation: Intracranial internal carotid arteries are normal in size and flow. The flow within the paired anterior cerebral arteries is normal and symmetric. The flow within the middle cer ebral arteries is normal and symmetric. The anterior communicating artery is seen. No aneurysms are seen. Posterior circulation: Visualized portions of the vertebral arteries demonstrate normal caliber, and join to form a normal appearing basilar artery. Flow within the posterior cerebral arteries is norm al and symmetric. No aneurysms are seen. Right vertebral artery dominance is noted. The ventricular system and cortical sulci demonstrate atrophy, consistent for patient's stated age. There are areas of hypodensity in the periventricular and subcortical white matter. There is no acut e intra or extra-axial fluid collection. No acute hemorrhage, mass lesion or midline shift. Brainst em is unremarkable. Globes are symmetrical. Sinuses are aerated. Osseous structures are intact. IMPRESSION: 1. No acute intracranial process. 2. No areas of hemodynamically significant stenosis, vascular occlusion or aneurysmal dilation within the anterior circulation. Reviewed by: Shawna Melchor MD on 05/01/2021 3:41 PM PDT Approved by: Shawna Melchor MD on 05/01/2021 3:41 PM PDT Station ID: [id number]
--- NOTE | 2021-05-01 15:46 | CT Report ---
PROCEDURE: ANGIO NECK W INDICATIONS: L hand numbness CONTRAST: IV CONTRAST: Optiray 320 ml: 80 PO CONTRAST: *NO PO CONTRAST TECHNIQUE: After the administration of intravenous contrast, 1.5 mm axial sections acquired from the aortic arch to the [place]. Coronal 3-D maximum intensity projection (MIP) and/or volume rendering ref ormats were then performed. For radiation dose reduction, the following was used: automated exposur e control, adjustment of mA and/or kV according to patient size. COMPARISON: None. FINDINGS: Image quality: Excellent. The origins of the left and right common, internal and external carotid arteries demonstrate no areas of hemodynamically significant stenosis, vascular occlusion or aneurysmal dilation. Origin of the le ft vertebral artery and right vertebral artery demonstrate no areas of hemodynamically significant st enosis, vascular occlusion or aneurysmal dilation. 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 Limited, visualized portions of the subclavian vasculature are unremarkable. Multilevel degenerative changes are present within the cervical spine. IMPRESSION: There are no areas of hemodynamically significant stenosis, vascular occlusion or aneurysmal dilation within the neck vasculature. The estimate of stenosis included in the report of the imaging study was calculated using the NASCET method Reviewed by: Shawna Melchor MD on 05/01/2021 3:45 PM PDT Approved by: Shawna Melchor MD on 05/01/2021 3:45 PM PDT Station ID: [id number]
[2021-05-01 16:07] VITALS: BP 149/67
== END 2021-05-01 16:09 | disposition home or self-care (01) ==
LOC: EDUNIT# → ED 12:10
DX: R20.2 Paresthesia of skin (principal); Z86.73 Personal history of transient ischemic attack (TIA), and cerebral infarction without residual deficits; I10 Essential (primary) hypertension
CPT/HCPCS: 36415; 70496; 70498; 71045; 80053; 83690; 84484; 85025; 93005; 99284; Q9967

== ENCOUNTER 2022-05-18 16:01 | Emergency (ER) | payer MEDICARE, OTHER ==
--- NOTE | 2022-05-18 15:57 | ED Physician Documentation ---
PD HPI FOCAL NEURO - Stated complaint Stated Complaint: TIA - History obtained from History obtained from: Patient - Additional information Additional information: 86-year-old woman with history of hypertension, hyperlipidemia, and 2 TIAs in the past. She also has polycythemia and is on hydroxyurea. No history of heart problems or arrhythmias. She is on aspirin, no other antiplatelets or anticoagulant prophylaxis. At 3 PM today she developed left arm tingling and tingling of the tongue. It was not associate with any other neurologic symptoms. It resolved within half an hour. She is 100% fine now. Review of the chart shows that she had clean carotids in April of last year. She took 4 baby aspirin at home and does take baby aspirin daily. 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, Hysterectomy HEENT: Cataracts - Present Medications Home Medications: Ambulatory Orders Medication Instructions Recorded Confirmed Levothyroxine [Synthroid] 25 mcg PO QDAC 03/18/14 04/19/22 Lisinopril 10 mg PO DAILY 03/18/14 04/19/22 amLODIPine [Norvasc] 10 mg PO DAILY 03/18/14 04/19/22 Simvastatin 20 mg PO QPM 03/25/17 04/19/22 Omeprazole 40 mg PO QDAC 03/26/17 04/19/22 atenoloL [Atenolol] 50 mg PO DAILY 05/11/19 04/19/22 Hydroxyurea [Hydrea] 500 mg PO UD #48 capsule 05/30/20 04/19/22 Escitalopram [Lexapro] 10 mg PO DAILY 05/01/21 04/19/22 Hydroxyurea [Hydrea] 500 mg PO UD #60 cap 01/22/22 04/19/22 Clopidogrel [Plavix] 75 mg PO DAILY #30 tablet 05/18/22 - Allergies Allergies/Adverse Reactions: Allergies Allergy/AdvReac Type Severity Reaction Status Date / Time No Known Drug Allergies Allergy Verified 05/01/21 12:16 - Social History Does the pt smoke?: No Smoking Status: Never smoker Does the pt drink ETOH?: No Does the pt have substance abuse?: No - Immunizations Immunizations are current?: Yes - POLST Patient has POLST: No PD ED PE NORMAL - Vitals Vital signs reviewed: Yes - General General: Alert and oriented X 3, No acute distress - HEENT HEENT: PERRL, EOMI - Neck Neck: Supple, no meningeal sign, No bony TTP - Cardiac Cardiac: RRR, No murmur - Respiratory Respiratory: No respiratory distress, Clear bilaterally - Abdomen Abdomen: Normal bowel sounds, Soft, Non tender - Back Back: No CVA TTP, No spinal TTP - Derm Derm: Normal color, Warm and dry - Extremities Extremities: No edema, No calf tenderness / cord - Neuro Neuro: Alert and oriented X 3, Normal speech NIHSS - Time Time: 17:53 - Level of Consciousness Level of consciousness: (0) Alert, Keenly responsive LOC Questions: (0) Answers both Q's correct LOC Commands: (0) Performs both correctly - Gaze Best Gaze: (0) Normal - Visual Visual: (0) No loss - Facial Palsy Facial Palsy: (0) Normal, symmetrical movement - Motor Arms (both separate) Motor Arm (right): (0) No drift Motor Arm (left): (0) No drift - Motor Legs (both separate) Motor Leg (right): (0) No drift Motor Leg (left): (0) No drift - Limb Ataxia Limb Ataxia: (0) Absent - Sensory Sensory: (0) Normal - Best Language Best Language: (0) No aphasia - Dysarthria Dysarthria: (0) Normal - Extinction and Inattention (formally neg Extinction and inattention: (0) No abnormality - Total Score/Results Total Score/Result: 0 Results - Vitals Vitals: Vital Signs - 24 hr 05/18/22 16:05 Temperature 36.6 C Heart Rate 75 Respiratory 24 Rate Blood Pressure 153/73 H O2 Saturation 100 Oxygen O2 Source Room air - EKG (time done) 1651 Rate: Rate (enter#) (65) Rhythm: NSR [place]: LAD (borderline) Intervals: Normal VT QRS: Normal Ischemia: Normal ST segments - Labs Labs: Laboratory Tests 05/18/22 05/18/22 16:04 16:04 WBC 6.4 RBC 3.42 L Hgb 11.4 L Hct 33.9 L MCV 99.1 H MCH 33.3 H MCHC 33.6 RDW 15.6 H Plt Count 618 H MPV 9.3 Sodium 138 Potassium 4.2 Chloride 100 L Carbon Dioxide 28 Anion Gap 10.0 BUN 20 Creatinine 0.9 Estimated GFR (MDRD) 60 L Glucose 127 H Calcium 9.9 - Rads (name of study) CT Head Radiology: EMP read contemporaneously (NAD) PD MEDICAL DECISION MAKING - ED course ED course: 86-year-old woman with resolved TIA, ABCD 2 score is [address] of the head and carotid arteries are without pertinent positive findings. She was already on aspirin so advised 3 weeks of dual antiplatelet therapy with Plavix only after that. Departure - Departure Disposition: 01 Home, Self Care Clinical Impression: TIA (transient ischemic attack) Condition: Good Record reviewed to determine appropriate education?: Yes Instructions: ED Transient Ischemic Attack Prescriptions: Clopidogrel [Plavix] 75 mg PO DAILY #30 tablet Comments: As discussed, it sounds like you had a TIA today. We use a scoring system after a TIA to decide if you need to be admitted and your short-term risk of stroke is from 1 to 3% so pretty low. I want you to continue to take aspirin every day for now, but instead of 1 baby aspirin you are going to take 2 baby aspirin. You should continue that for 3 weeks / 21 days. In addition to that we are starting you on clopidogrel which is a stronger antiplatelet agent. After 3 weeks you should continue the clopidogrel but you can stop the aspirin. Return for new or worsening symptoms. Follow-up with your doctor within the week for recheck.
[2022-05-18 16:06] LABS: HCT - HEMATOCRIT 33.9 % (37.0-47.0); HGB - HEMOGLOBIN 11.4 g/dL (12.0-16.0); MEAN CORPUSCULAR HEMOGLOBIN 33.3 pg (27.0-31.0); MEAN CORPUSCULAR HGB CONC 33.6 g/dL (32.0-36.0); MEAN CORPUSCULAR VOLUME 99.1 fL (81.0-99.0); MEAN PLATELET VOLUME 9.3 fL (7.9-10.8); RED BLOOD COUNT 3.42 10^6/uL (4.20-5.40); RED CELL DISTRIBUTION WIDTH 15.6 % (12.0-15.0); WHITE BLOOD COUNT 6.4 x10^3/uL (4.8-10.8)
[2022-05-18 16:16] LABS: CALCIUM 9.9 mg/dL (8.5-10.3); CREATININE 0.9 mg/dL (0.4-1.0); POTASSIUM 4.2 mmol/L (3.5-5.0)
--- NOTE | 2022-05-18 16:46 | CT Report ---
PROCEDURE: HEAD WO INDICATIONS: TIA TECHNIQUE: Noncontrast 4.5 mm thick angled axial sections acquired from the foramen magnum to the vertex. For r adiation dose reduction, the following was used: automated exposure control, adjustment of mA and/or kV according to patient size. COMPARISON: CT head 03/25/2017. MRI brain 03/26/2017. FINDINGS: Image quality: Excellent. CSF spaces: Basal cisterns are patent. No extra-axial fluid collections. The ventricles are symmet oscar in size and shape. Brain: No intracranial bleeds or masses. There is cerebral volume loss for age, with resultant vent ricular and sulcal prominence. There are periventricular and deep white matter chronic small vessel ischemic changes. There is intracranial internal carotid artery atherosclerosis. Skull and face: Calvarium and visualized facial bones appear intact, without suspicious lesions. Sinuses: Visualized sinuses and mastoids are clear. IMPRESSION: No acute intracranial disease process. Reviewed by: Silvia Horan MD, PhD on 05/18/2022 4:45 PM PDT Approved by: Silvia Horan MD, PhD on 05/18/2022 4:45 PM PDT Station ID: [id number]
[2022-05-18] MEDS ORDERED: CLOPIDOGREL 300 MG TABLET PO STA (18:48)
[2022-05-18 19:07] VITALS: BP 155/66
--- NOTE | 2022-05-18 19:21 | Ultrasound Report ---
PROCEDURE: Carotid Doppler Complete INDICATIONS: TIA TECHNIQUE: Color and pulse Doppler interrogation was performed of both carotid systems, with image documentation and velocity measurements. COMPARISON: Carotid ultrasound, 10/16/2016.. FINDINGS: Right side: Brachial blood pressure: 137/70 mm Hg. Common carotid artery peak systolic velocity: 68.3 cm/sec. Internal carotid artery peak systolic velocity: 86.6 cm/sec. Internal carotid artery end diastolic velocity: 17.7 cm/sec. External carotid artery peak systolic velocity: 72.9 cm/sec. ICA/CCA peak systolic ratio: 1.3 . Guardado scale imaging description: Tortuous with moderate plaquing. Percent internal carotid artery stenosis: Less than 50% and unchanged . Vertebral artery: Flow direction is antegrade. Left side: Brachial blood pressure: 149/69 mm Hg. Common carotid artery peak systolic velocity: 69.8 cm/sec. Internal carotid artery peak systolic velocity: 68.9 cm/sec. Internal carotid artery end diastolic velocity: 16.4 cm/sec. External carotid artery peak systolic velocity: 67.6 cm/sec. ICA/CCA peak systolic ratio: 0.9 . Guardado scale imaging description: Tortuous with calcified plaques at the bifurcation Percent internal carotid artery stenosis: Less than 50%. Vertebral artery: Flow direction is antegrade. IMPRESSION: 1. Less than 50% internal carotid artery stenosis bilaterally. No significant change from the last ex am. 2. Tortuous carotid arteries bilaterally. The estimate of stenosis included in the report of the imaging study was calculated using the NASCET method Reviewed by: Belle Beltre MD on 05/18/2022 7:19 PM PDT Approved by: Belle Beltre MD on 05/18/2022 7:19 PM PDT Station ID: [id number]
== END 2022-05-18 19:07 | disposition home or self-care (01) ==
LOC: ED 16:01
DX: G45.9 Transient cerebral ischemic attack, unspecified (principal)
CPT/HCPCS: 36415; 70450; 80048; 85027; 93005; 93880; 99284; A9270

== ENCOUNTER 2024-04-10 12:49 | Emergency (ER) | payer MEDICARE, OTHER ==
[2024-04-10 13:12] VITALS: O2SAT 99
[2024-04-10 13:26] LABS: BASOPHILS % (AUTO) 0.6 %; EOSINOPHILS # (AUTO) 0.1 10^3/uL (0.0-0.7); EOSINOPHILS % (AUTO) 1.2 %; HCT - HEMATOCRIT 37.2 % (37.0-47.0); HGB - HEMOGLOBIN 11.9 g/dL (12.0-16.0); LYMPHOCYTES # (AUTO) 0.9 10^3/uL (1.5-3.5); LYMPHOCYTES % (AUTO) 18.7 %; MEAN CORPUSCULAR HEMOGLOBIN 34.5 pg (27.0-31.0); MEAN CORPUSCULAR VOLUME 107.8 fL (81.0-99.0); MEAN PLATELET VOLUME 9.1 fL (7.9-10.8); MONOCYTES # (AUTO) 0.5 10^3/uL (0.0-1.0); MONOCYTES % (AUTO) 9.1 %; NEUTROPHILS # (AUTO) 3.5 10^3/uL (1.5-6.6); NEUTROPHILS % (AUTO) 70.2 %; PLT - PLATELET COUNT 483 10^3/uL (130-450); RED BLOOD COUNT 3.45 10^6/uL (4.20-5.40); RED CELL DISTRIBUTION WIDTH 14.9 % (12.0-15.0)
[2024-04-10 13:56] LABS: ALBUMIN 4.3 g/dL (3.2-5.5); ALBUMIN/GLOBULIN RATIO 1.8 (1.0-2.2); BILIRUBIN,TOTAL 0.4 mg/dL (0.2-1.0); CALCIUM 9.7 mg/dL (8.5-10.3); POTASSIUM 4.4 mmol/L (3.5-4.5); TOTAL PROTEIN 6.7 g/dL (6.4-8.9)
--- NOTE | 2024-04-10 15:43 | ED Physician Documentation ---
History of Present Illness - Stated complaint Stated Complaint: VERTIGO - Chief complaint Chief Complaint: Neuro - History obtained from History obtained from: Patient - Additonal information Additional information: She has a history of vertigo and has been in physical therapy for same. Last bad episode was just 2 years ago. She has had on and off vertigo for the last 6 days. It is worse in the mornings when she gets up and rotates her head. It is not associate with headache, focal weakness, numbness, tingling, clumsiness, diplopia, slurred speech nor any other strokelike symptom. 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, Hysterectomy HEENT: Cataracts - Present Medications Home Medications: Ambulatory Orders Medication Instructions Recorded Confirmed Levothyroxine [Synthroid] 25 mcg PO QDAC 03/18/14 01/15/24 Lisinopril 10 mg PO DAILY 03/18/14 01/15/24 amLODIPine [Norvasc] 10 mg PO DAILY 03/18/14 01/15/24 Simvastatin 20 mg PO QPM 03/25/17 01/15/24 atenoloL [Atenolol] 50 mg PO DAILY 05/11/19 01/15/24 Escitalopram [Lexapro] 10 mg PO DAILY 05/01/21 01/15/24 Clopidogrel [Plavix] 75 mg PO DAILY 06/12/22 01/15/24 Rosuvastatin Calcium [Crestor] 20 mg PO DAILY 06/12/22 01/15/24 Pantoprazole [Protonix] 40 mg PO DAILY 07/23/22 01/15/24 Hydroxyurea [Hydrea] 500 mg PO DAILY 10/30/22 01/15/24 - Allergies Allergies/Adverse Reactions: Allergies Allergy/AdvReac Type Severity Reaction Status Date / Time No Known Drug Allergies Allergy Verified 04/10/24 13:09 - Social History Does the pt smoke?: No Smoking Status: Never smoker Does the pt drink ETOH?: No Does the pt have substance abuse?: No - Immunizations Immunizations are current?: Yes - POLST Patient has POLST: No PD ED PE NORMAL - Vitals Vital signs reviewed: Yes - General General: Alert and oriented X 3, No acute distress - HEENT HEENT: PERRL, EOMI - Neck Neck: Supple, no meningeal sign, No bony TTP - Cardiac Cardiac: RRR, No murmur - Respiratory Respiratory: No respiratory distress, Clear bilaterally - Abdomen Abdomen: Non tender - Back Back: No CVA TTP, No spinal TTP - Derm Derm: Normal color, Warm and dry - Neuro Neuro: Alert and oriented X 3, No motor deficit, No sensory deficit, Normal speech, Other (see mdm) Eye Opening: Spontaneous Motor: Obeys Commands Verbal: Oriented GCS Score: 15 Results - Vitals Vitals: Vital Signs - 24 hr 04/10/24 13:03 Temperature 36.5 C Heart Rate 70 Respiratory 18 Rate Blood Pressure 148/55 H O2 Saturation 99 Oxygen O2 Source Room air - Labs Labs: Laboratory Tests 04/10/24 04/10/24 13:19 13:19 WBC 5.0 RBC 3.45 L Hgb 11.9 L Hct 37.2 MCV 107.8 H MCH 34.5 H MCHC 32.0 RDW 14.9 Plt Count 483 H MPV 9.1 Neut # (Auto) 3.5 Lymph # (Auto) 0.9 L Boyd # (Auto) 0.5 Eos # (Auto) 0.1 Baso # (Auto) 0.0 Absolute Nucleated RBC 0.00 Nucleated RBC % 0.0 Sodium 139 Potassium 4.4 Chloride 103 Carbon Dioxide 31 Anion Gap 5.0 L BUN 18 Creatinine 1.0 Estimated GFR (MDRD) 53 L Glucose 124 H Calcium 9.7 Total Bilirubin 0.4 AST 14 ALT 14 Alkaline Phosphatase 59 Total Protein 6.7 Albumin 4.3 Globulin 2.4 Albumin/Globulin Ratio 1.8 Lipase 41 PD Medical Decision Making - ED course ED course: On my initial evaluation she is not vertiginous and has no nystagmus. S ubsequently during a trial of the Bryanna maneuver she developed rotatory nystagmus with the right ear down. The Bryanna maneuver was successful. Subsequently had no ataxia on finger-nose or [id number] testing. No truncal ataxia. Normal gait. She was counseled on use of the Bryanna maneuver at home which I discussed with her would be safer and have less side effects than any medications used for vertigo. The above findings confirm a peripheral cause of vertigo. Departure - Departure Disposition: 01 Home, Self Care Clinical Impression: Vertigo Condition: Good Record reviewed to determine appropriate education?: Yes Instructions: ED Vertigo Unspecified Follow-Up: Oh Perez, DO [Provider Admit Priv/Credential] - Comments: You are seen today for peripheral vertigo, I think related to right ear issue. As we discussed. You can do the Bryanna maneuver as shown which I think will be helpful for you. Return for new or worsening symptoms. Follow-up with your primary, next available appointment.
[2024-04-10 15:55] VITALS: BP 151/66
== END 2024-04-10 15:55 | disposition home or self-care (01) ==
LOC: ED 12:49
DX: H81.391 Other peripheral vertigo, right ear (principal)
CPT/HCPCS: 36415; 80053; 83690; 85025; 99283

== ENCOUNTER 2024-04-14 12:49 | Outpatient (CLI) | payer MEDICARE, OTHER ==
--- NOTE | 2024-04-15 14:48 | DEXA Report ---
PROCEDURE: Dexa Spine and/or Hip INDICATIONS: MENOPAUSAL TECHNIQUE: Dual energy x-ray absorptiometry (DXA) was performed on a [employer] System. Regions measur ed are the AP Spine, femoral neck, and if needed forearm. COMPARISON: 10/22/2018 FINDINGS: Lumbar Spine: Bone Mineral Density: 0.769 g/cm/cm,T score: -3.4. Since the most recent prior study, there has been a statistically significant decrease in bone mineral density by -47 percent. Left Femoral Neck: Bone Mineral Density: 0.742 g/cm/cm, T score: -2.1. Left Hip: Bone Mineral Density: 0.728 g/cm/cm,T score: -2.2. There has been no statistically significant change in bone mineral density since the prior study. (T score greater or equal to -1.0: NORMAL) (T score from -1.1 to -2.4: OSTEOPENIA) (T score less than or equal to -2.5 to: OSTEOPOROSIS) Impression: By WHO criteria, this patient has osteoporosis. Interval statistical decrease in bone mineral density of the lumbar spine. No statistical interval ch luisa in bone mineral density of the hip. Patients with diagnosis of osteoporosis or osteopenia should have regular bone mineral density assess ment. For those eligible for Medicare, routine testing is allowed once every 2 years. Testing frequ ency can be increased for patients who have rapidly progressing disease or for those who are receivin g medical therapy to restore bone mass. Reviewed by: Doug Calvert MD on 04/15/2024 2:47 PM PDT Approved by: Doug Calvert MD on 04/15/2024 2:47 PM PDT Station ID: [id number]
== END 2024-04-14 12:50 | disposition home or self-care (01) ==
LOC: DI 12:49
PROVIDERS: ATTEND Physician Assistant
DX: M81.0 Age-related osteoporosis without current pathological fracture (principal)

== ENCOUNTER 2024-04-15 14:19 | Outpatient (CLI) | payer MEDICARE, OTHER | END 2024-04-15 23:59 | disposition critical access hospital (66) | LOC: EMS 14:19 | DX: M53.82 Other specified dorsopathies, cervical region (principal); R20.2 Paresthesia of skin; R42 Dizziness and giddiness | CPT/HCPCS: A0425; A0429 ==

== ENCOUNTER 2024-04-15 14:44 | Emergency (ER) | payer MEDICARE, OTHER ==
--- NOTE | 2024-04-15 14:59 | ED Physician Documentation ---
History of Present Illness - Stated complaint Stated Complaint: STIFF NECK - Chief complaint Chief Complaint: General - History obtained from History obtained from: Patient, Family - Additonal information Additional information: 88-year-old female presents by EMS from home for vertigo. Patient states that she has chronic vertigo and was seen several days ago in the emergency department for same. She was discharged with instructions on the Bryanna maneuver. This morning patient had another bout of vertigo and the maneuvers did not seem to work. Patient then stated that she felt a "tingling" sensation in the back of her head and her called 911. Patient states that she feels much better now and has no vertigo. She states that her is very anxious about her health because several years ago she had vertigo so severe that she had to go to physical therapy and had prolonged recovery. She states that her was concerned that this may be happening again and so decided to call 911 for her. She denies any tingling in the back of her head at this time. Daughter at bedside is also concerned about electrolytes and request that we check patient's potassium if it has not been checked recently. Review of Systems Constitutional: denies: Fever, Chills : denies: Dysuria, Frequency, Hesitancy Musculoskeletal: denies: Neck pain, Back pain, Extremity pain, Joint pain Neurologic: reports: Other. 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 HEENT: Cataracts - Present Medications Home Medications: Ambulatory Orders Medication Instructions Recorded Confirmed Levothyroxine [Synthroid] 25 mcg PO QDAC 03/18/14 01/15/24 Lisinopril 10 mg PO DAILY 03/18/14 01/15/24 amLODIPine [Norvasc] 10 mg PO DAILY 03/18/14 01/15/24 Simvastatin 20 mg PO QPM 03/25/17 01/15/24 atenoloL [Atenolol] 50 mg PO DAILY 05/11/19 01/15/24 Escitalopram [Lexapro] 10 mg PO DAILY 05/01/21 01/15/24 Clopidogrel [Plavix] 75 mg PO DAILY 06/12/22 01/15/24 Rosuvastatin Calcium [Crestor] 20 mg PO DAILY 06/12/22 01/15/24 Pantoprazole [Protonix] 40 mg PO DAILY 07/23/22 01/15/24 Hydroxyurea [Hydrea] 500 mg PO DAILY 10/30/22 01/15/24 Meclizine HCl 25 mg PO TID PRN #30 tab 04/15/24 - Allergies Allergies/Adverse Reactions: Allergies Allergy/AdvReac Type Severity Reaction Status Date / Time No Known Drug Allergies Allergy Verified 04/15/24 14:55 - Social History Does the pt smoke?: No Smoking Status: Never smoker Does the pt drink ETOH?: No Does the pt have substance abuse?: No - Immunizations Immunizations are current?: Yes - POLST Patient has POLST: No PD ED PE NORMAL - Vitals Vital signs reviewed: Yes - General General: Alert and oriented X 3, No acute distress, Well developed/nourished - HEENT HEENT: Atraumatic, PERRL, EOMI, Ears normal - Neck Neck: Supple, no meningeal sign - Cardiac Cardiac: RRR, Strong equal pulses - Respiratory Respiratory: No respiratory distress, Clear bilaterally - Abdomen Abdomen: Soft, Non tender, Non distended - Derm Derm: Normal color, Warm and dry, No rash - Extremities Extremities: No deformity, No edema - Neuro Neuro: Alert and oriented X 3, pen tender 2-12 intact, No motor deficit, Normal speech Results - Vitals Vitals: Oxygen O2 Source Room air PD Medical Decision Making - ED course Complexity details: reviewed old records, reviewed results, re-evaluated p atient, considered differential, d/w patient, d/w family ED course: Vertigo and neck tingling that has now resolved. Daughter at bedside concerned about patient's potassium. Laboratory work was checked at patient's last ER visit, potassium was within normal limits, patient symptoms or not consistent with hypokalemia and there is little utility in repeating lab work at this time. Patient given IV fluids and meclizine with no return of vertigo. Patient prescribed meclizine for her dizziness and counseled to continue the Bryanna maneuver as previously shown. Departure - Departure Disposition: 01 Home, Self Care Clinical Impression: Vertigo Condition: Stable Instructions: Meclizine, ED Vertigo Unspecified Prescriptions: Meclizine HCl 25 mg PO TID PRN #30 tab PRN Reason: Vertigo Comments: Continue to try the maneuvers at home for your vertigo. You may take the meclizine as needed for vertigo as well. Please follow-up with your primary care doctor. Forms: PCP List Discharge Date/Time: 04/15/24 17:11
[2024-04-15] MEDS: SODIUM CHLORIDE 0.9% 1,000 ML IV STA (15:20)
[2024-04-15] MEDS: MECLIZINE 12.5 MG TABLET PO STA (15:20)
[2024-04-15 17:11] VITALS: BP 142/60; O2SAT 97
== END 2024-04-15 17:11 | disposition home or self-care (01) ==
LOC: EDUNIT# → ED 14:44
DX: R42 Dizziness and giddiness (principal); I10 Essential (primary) hypertension; E03.9 Hypothyroidism, unspecified; Z79.899 Other long term (current) drug therapy; Z79.02 Long term (current) use of antithrombotics/antiplatelets
CPT/HCPCS: 99283; A9270